=== PATIENT | female | born 1935 | race Caucasian/White ===

== ENCOUNTER → 2016-08-26 | Outpatient (CLI) | payer MEDICARE ==
[~2016-08-26] MED LIST: ACET-1697 PO; ACET325T38 PO; ACET500T94 PO; ALEN70TA47 PO; ALEN70TA51 PO; AMLO5TAB2; Acetaminophen PO; CLPD75T; CRV25T; DCS100C PO; DOCU-161 PO; FERR256T PO; FOLI1TAB24 PO; FRSM40T; GLIP5TAB26; ITRA100C; LATA2.5D19 OD; METH2.5T PO; METH2.5T21 PO; METO25TA2 PO; MTF500T; MTP50T PO; MULT-974 PO; NF-ALI300T; NF-LEVTH75; NS10S IV; PARO10TA21; PRD10T PO; PRD50T PO; PRED5TAB PO; RIVA10TA PO; RIVA20TA2 PO; SENN1TAB76 PO; TERA5CAP10; TETR15DR82 OP; TETR15DR82 OU; TRAM50TA2 PO
--- NOTE | 2016-08-26 10:36 | Diagnostic Imaging Report ---
INDICATION: Interstitial fibrosis. EXAMINATION: PA and lateral chest. FINDINGS: The heart size and pulmonary vascularity are normal. There are no infiltrates, effusions, or pneumothoraces. There is minimal prominence of the interstitium in the perihilar regions of both lungs but the overall appearance of the chest appears improved compared to 08/08/2014. IMPRESSION: Minimal perihilar interstitial prominence. Dictated by: Dictated on workstation # [id number]
== END ==
LOC: RAD 09:57
PROVIDERS: ATTEND Internal Medicine
DX: J84.10 Pulmonary fibrosis, unspecified (principal); M06.9 Rheumatoid arthritis, unspecified; Z79.899 Other long term (current) drug therapy
CPT/HCPCS: 71020

== ENCOUNTER → 2016-10-14 | Outpatient (CLI) | payer MEDICARE ==
--- OUTSIDE RECORDS SUMMARY | 2016-10-14 16:42 | XMS REPORT | Continuity of Care Document ---
Author Author [facility] Organization [facility] Address Unknown Phone Unavailable Allergies Active Description Code Type Severity Reaction Onset Reported/Identified Relationship to Patient Clinical Status Yes No Known Drug Allergies [id number] Drug Allergy Unknown N/ A 10/29/2008 Medications Problems Date Dx Coded Attending Type Code Diagnosis Diagnosed By 03/19/2014 CY BHAKTA DO Ot 250.00 DIAB DEBRA WO COMPL, TYPE II OR UNSPEC TY 03/19/2014 CY BHAKTA DO Ot 276.8 HYPOPOTASSEMIA 03/19/2014 CY BHAKTA DO Ot 288.60 LEUKOCYTOSIS, UNSPECIFIED 03/19/2014 CY BHAKTA DO Ot 362.50 MACULAR DEGENERATION NOS 03/19/2014 CY BHAKTA DO Ot 401.9 HYPERTENSION NOS 03/19/2014 CY BHAKTA DO Ot 427.31 ATRIAL FIBRILLATION 03/19/2014 CY BHAKTA DO Ot 714.0 RHEUMATOID ARTHRITIS 03/19/2014 CY BHAKTA DO Ot 733.00 OSTEOPOROSIS NOS 03/19/2014 CY BHAKTA DO Ot 820.09 FX FEMUR INTRCAPS NEC-CL 03/19/2014 CY BHAKTA DO Ot E849.0 ACCIDENT IN HOME 03/19/2014 CY BHAKTA DO Ot E885.9 FALL FROM SLIPPING, TRIPPING, OR STUMBLI 03/19/2014 CY BHAKTA DO Ot E932.0 ADV EFF CORTICOSTEROIDS 03/29/2014 LILLY ENGLISH, AQUILES E Ot 285.9 ANEMIA NOS 03/29/2014 LILLY ENGLISH, AQUILES E Ot 362.50 MACULAR DEGENERATION NOS 03/29/2014 LILLY ENGLISH, AQUILES E Ot 401.9 HYPERTENSION NOS 03/29/2014 LILLY ENGLISH, AQUILES E Ot 427.31 ATRIAL FIBRILLATION 03/29/2014 LILLY ENGLISH, AQUILES E Ot 714.0 RHEUMATOID ARTHRITIS 03/29/2014 LILLY ENGLISH, AQUILES E Ot 733.00 OSTEOPOROSIS NOS 03/29/2014 LILLY ENGLISH, AQUILES E Ot V54.13 AFTERCARE HEALING TRAUMATIC FX HIP 03/29/2014 LILLY ENGLISH, AQUILES Le Ot V57.89 REHABILITATION PROC NEC 05/18/2014 LIVIA CY Tammy Ot V54.13 AFTERCARE HEALING TRAUMATIC FX HIP 05/18/2014 LIVIA DO CY Munoz Ot V57.1 PHYSICAL THERAPY NEC 06/15/2014 Ot V76.12 06/15/2014 Ot V76.12 06/15/2014 Ot V76.12 06/15/2014 IAN ENGLISH, DINA Gardner Ot V76.12 06/15/2014 IAN ENGLISH, DINA Gadrner Ot 427.31 06/20/2014 IAN ENGLISH, DINA Gardner Ot 511.9 06/20/2014 IAN ENGLISH, DINA Gardner Ot 780.79 06/20/2014 IAN ENGLISH, DINA Gardner Ot 786.7 07/04/2014 IAN ENGLISH, DINA Gardner Ot 486 07/10/2014 DINA SOSA MD Ot 511.9 07/10/2014 IAN ENGLISH, DINA Gardner Ot 780.79 07/10/2014 DINA SOSA MD Ot 786.7 07/16/2014 Ot V76.12 07/16/2014 Ot V76.12 07/16/2014 Ot V76.12 07/16/2014 IAN ENGLISH, DINA Gardner Ot V76.12 07/16/2014 IAN ENGLISH, DINA Gardner Ot 427.31 07/16/2014 IAN ENGLISH, DINA Gardner Ot 511.9 07/16/2014 IAN ENGLISH, DINA Gardner Ot 780.79 07/16/2014 IAN ENGLISH, DINA Gardner Ot 786.7 07/16/2014 IAN ENGLISH, DINA Gardner Ot 486 07/16/2014 IAN ENGLISH, DINA Gardner Ot 486 07/16/2014 LIDYA BACH DO Ot 429.3 07/16/2014 LIDYA BACH DO Ot 514 07/16/2014 IAN ENGLISH, DINA Gardner Ot 486 07/16/2014 LEANDER ENGLISH, PAYAM T Ot 115.90 HISTOPLASMOSIS NOS 07/16/2014 LEANDER ENGLISH, PAYAM Funk Ot 714.0 RHEUMATOID ARTHRITIS 07/16/2014 LEANDER ENGLISH, PAYAM T Ot 719.45 JOINT PAIN-PELVIS 07/16/2014 LEANDER ENGLISH, PAYAM Funk Ot 790.92 COAGULATION PROFILE, ABNORMAL 07/16/2014 BRUEGGEMANN MD, PAYAM T Ot 820.21 INTERTROCHANTERIC FX-CL 07/16/2014 PAYAM TABOR MD Ot E000.8 OTHER EXTERNAL CAUSE STATUS 07/16/2014 PAYAM TABOR MD Ot E888.9 FALL NOS 07/16/2014 PAYAM TABOR MD Ot V58.65 LONG-TERM(CURRENT)USE OF STEROIDS 07/17/2014 DINA SOSA MD Ot 511.9 07/17/2014 DINA SOSA MD Ot 780.79 07/17/2014 DINA SOSA MD Ot 786.7 07/23/2014 DINA SOSA MD Ot 486 08/06/2014 LIDYA BACH DO Ot 429.3 08/06/2014 LIDYA BACH DO Ot 514 08/08/2014 LIDYA BACH DO Ot 401.9 HYPERTENSION NOS 08/08/2014 LIDYA BACH DO Ot 514 PULM CONGEST/HYPOSTASIS 08/08/2014 LIDYA BACH DO Ot 714.0 RHEUMATOID ARTHRITIS 08/08/2014 LIDYA BACH DO Ot 782.3 EDEMA 02/21/2015 TAHIRA JAIN MD Ot 733.00 04/10/2015 DINA SOSA MD Ot V76.12 04/27/2016 Ot V76.12 OTH SCREEN MAMMO-MALIGN NEOPLASM OF SHIVANI 04/27/2016 DINA SOSA MD Ot V76.12 OTH SCREEN MAMMO-MALIGN NEOPLASM OF SHIVANI 04/27/2016 DINA SOSA MD Ot 427.31 ATRIAL FIBRILLATION 04/27/2016 DINA SOSA MD Ot 511.9 PLEURAL EFFUSION NOS 04/27/2016 DINA SOSA MD Ot 780.79 OTH MALAISE FATIGUE 04/27/2016 DINA SOSA MD Ot 786.7 ABNORMAL CHEST SOUNDS 04/27/2016 DINA SOSA MD Ot 486 PNEUMONIA, ORGANISM NOS 04/27/2016 DINA SOSA MD Ot 486 PNEUMONIA, ORGANISM NOS 04/27/2016 LIDYA BACH DO Ot 429.3 CARDIOMEGALY 04/27/2016 LIDYA BACH DO Ot 514 PULM CONGEST/HYPOSTASIS 04/27/2016 DINA SOSA MD Ot V76.12 OTH SCREEN MAMMO-MALIGN NEOPLASM OF SHIVANI 04/27/2016 TAHIRA JAIN MD Ot 733.00 OSTEOPOROSIS NOS 04/28/2016 BLAYNE CHRISSNIRAJ Ot I10 ESSENTIAL (PRIMARY) HYPERTENSION 04/28/2016 BLAYNE CHRISSNIRAJ Ot I34.0 NONRHEUMATIC MITRAL (VALVE) INSUFFICIENC 04/28/2016 BLAYNE CHRISSNIRAJ Ot I48.0 PAROXYSMAL ATRIAL FIBRILLATION 04/28/2016 BLAYNE CHRISS NIRAJ Brown Ot R07.9 CHEST PAIN, UNSPECIFIED 04/28/2016 BLAYNE CHRISSNIRAJ Ot I10 ESSENTIAL (PRIMARY) HYPERTENSION 04/28/2016 BLAYNE CHRISSJHONNYTH K Ot I34.0 NONRHEUMATIC MITRAL (VALVE) INSUFFICIENC 04/28/2016 BLAYNE CHRISS NIRAJ Brown Ot I48.0 PAROXYSMAL ATRIAL FIBRILLATION 04/28/2016 FIGUEROATHAO CHRISS NIRAJ Brown Ot R07.9 CHEST PAIN, UNSPECIFIED 05/19/2016 FIGUEROA-ROB BANERJEE NIRAJ K Ot I10 ESSENTIAL (PRIMARY) HYPERTENSION 05/19/2016 BLAYNE CHRISS NIRAJ Stephanie Ot I34.0 NONRHEUMATIC MITRAL (VALVE) INSUFFICIENC 05/19/2016 FGIUEROATHAO CHRISS NIRAJ Brown Ot I48.0 PAROXYSMAL ATRIAL FIBRILLATION 05/19/2016 FIGUEROA-ROB BANERJEE NIRAJ K Ot R07.9 CHEST PAIN, UNSPECIFIED 05/28/2016 FIGUEROATHAO CHRISSJHONNYTH K Ot I10 ESSENTIAL (PRIMARY) HYPERTENSION 05/28/2016 FIGUEROA-ROB BANERJEE NIRAJ K Ot I34.0 NONRHEUMATIC MITRAL (VALVE) INSUFFICIENC 05/28/2016 FIGUEROATHAO CHRISS NIRAJ Stephanie Ot I48.0 PAROXYSMAL ATRIAL FIBRILLATION 05/28/2016 FIGUEROA-ROB BANERJEE NIRAJ K Ot R07.9 CHEST PAIN, UNSPECIFIED 08/26/2016 DINA SOSA MD Ot J84.10 PULMONARY FIBROSIS, UNSPECIFIED 08/26/2016 DINA SOSA MD Ot M06.9 RHEUMATOID ARTHRITIS, UNSPECIFIED 08/26/2016 DINA SOSA MD Ot Z79.899 OTHER NURSING HOME (CURRENT) DRUG THERAPY 09/16/2016 DINA SOSA MD Ot J84.10 PULMONARY FIBROSIS, UNSPECIFIED 09/16/2016 DINA SOSA MD Ot M06.9 RHEUMATOID ARTHRITIS, UNSPECIFIED 09/16/2016 DINA SOSA MD Ot Z79.899 OTHER NURSING HOME (CURRENT) DRUG THERAPY 09/24/2016 DINA SOSA MD Ot J84.10 PULMONARY FIBROSIS, UNSPECIFIED 09/24/2016 DINA SOSA MD Ot M06.9 RHEUMATOID ARTHRITIS, UNSPECIFIED 09/24/2016 DINA SOSA MD Ot Z79.899 OTHER NEPHROLOGY NURSE (CURRENT) DRUG THERAPY Procedures Code Description Performed By Performed On 81.52 03/14/2014 Results Encounters ACCT No. Visit Date/Time Discharge Status Pt. Type Provider Facility Loc./Unit Complaint [id number] 03/18/2015 10:06:00 2014 23:59:59 CLS Outpatient DINA SOSA MD [facility] RAD SCREENING [id number] 01/31/2015 09:59:00 2014 23:59:59 CLS Outpatient TAHIRA JAIN MD [facility] RAD OSTEOPOROSIS [id number] 08/08/2014 06:56:00 2014 11:00:00 DIS Outpatient LIDYA BACH DO [facility] SDC HISTOPLASMA CAPSULATUM PNEUMONIA [id number] 07/16/2014 13:06:00 2013 16:34:00 DIS Emergency LEANDER ENGLISH, PAYAM Funk [facility] ER FALL/LEFT HIP PAIN [id number] 07/05/2014 09:55:00 2013 23:59:59 CLS Outpatient LIDYA BACH DO [facility] RAD PULMONARY EDEMA [id number] 06/20/2014 14:07:00 2013 23:59:59 CLS Outpatient DINA SOSA MD [facility] RAD PNEUMONIA [id number] 06/20/2014 09:54:00 2013 23:59:59 CLS Outpatient DINA SOSA MD [facility] RAD F/U PNEUMONIA [id number] 06/15/2014 11:38:00 2013 23:59:59 CLS Outpatient DINA SOSA MD [facility] RAD FATIGUE,RAILS RT LUNG [id number] 05/11/2014 11:00:00 2013 12:16:00 DIS Outpatient CY BHAKTA DO [facility] REHAB R HIP FX S/P R PARTIAL HIP REPLACEMENT [id number] 04/06/2014 07:57:00 2013 23:59:59 CLS Outpatient DINA SOSA MD [facility] CARD AFIB POST OP [id number] 03/19/2014 09:51:00 2013 14:30:00 DIS Inpatient AQUILES CARR MD [facility] IRF RIGHT HIP FX [id number] 03/14/2014 09:00:00 2013 09:51:00 DIS Inpatient CY BHAKTA DO [facility] SURGICAL R HIP FRACTURE [id number] 03/27/2013 08:30:00 2012 23:59:59 CLS Outpatient DINA SOSA MD [facility] RAD SCREENING [id number] 10/14/2016 16:38:00 ACT Outpatient DINA SOSA MD [facility] RAD COUGH [id number] 08/26/2016 09:57:00 ACT Outpatient DINA SOSA MD [facility] RAD INTERSTITIAL FIBROSIS [id number] 04/27/2016 12:51:00 ACT Outpatient NIRAJ LOWE [facility] CARD AF,CHEST PAIN SYNDROME,HTN, MR [id number] 11/06/2011 13:41:00 Document Registration [id number] 10/23/2010 09:42:00 Document Registration [id number] 05/30/2009 08:43:00 Document Registration
--- NOTE | 2016-10-14 17:14 | Diagnostic Imaging Report ---
INDICATION: Cough. COMPARISON STUDY: Chest from August 26. FINDINGS: Frontal view of the chest demonstrates stable mild interstitial disease. The heart size and vascularity are normal. There are no pleural effusions. IMPRESSION: Stable mild interstitial lung disease. Dictated by: Dictated on workstation # [id number]
== END ==
LOC: RAD 16:38
PROVIDERS: ATTEND Internal Medicine
DX: R05 Cough (principal)
CPT/HCPCS: 71020

== ENCOUNTER → 2017-01-01 | Outpatient (CLI) | payer MEDICARE | LOC: RAD 10:23 | PROVIDERS: ATTEND Internal Medicine | DX: Z12.31 Encounter for screening mammogram for malignant neoplasm of breast (principal) | CPT/HCPCS: 77067 ==

== ENCOUNTER 2017-08-28 21:44 | Emergency (ER) | payer MEDICARE ==
[~2017-08-28] VITALS: Ht 157.5 cm; Wt 59.0 kg
--- NOTE | 2017-08-28 22:30 | ED Fall/Injury ---
General Chief Complaint: Respiratory Problems Stated Complaint: SOB Nursing Triage Note: PT TO ED 7 W/ DAUGHTER FOR C/O SOB, LT RIB PAIN AFTER "SLIPPING" EARLIER TODAY. PT DENIES FALLING BUT BRUISING IS NOTED TO LT RIBS. STATES "IT'S PLEURISY" TO HER DAUGHTER. Source: patient, family (daughter) Exam Limitations: no limitations History of Present Illness Date Seen by Provider: Aug 28, 2017 Time Seen by Provider: 22:22 Initial Comments Patient presents to ER by private conveyance with chief complaint that she is having a little shortness of breath because she was getting up to move around a chair at [place] [facility] where she was visiting someone and her rheumatoid arthritis has been acting up worse lately than normal and she says she fell to her knees. She did not strike her head or lose consciousness. She is not having any pain anywhere except under her left ribs a little bit of pain on deep inspiration. She is also noted to have some bruising there. She is on Xarelto. She denies cough, fever, chills or dysuria. She is not had a fall in 3 years. 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 One of the aides at [place] did help her get back up because she didn't think she get her knees bent enough to get underneath her. Allergies and Home Medications Allergies Coded Allergies: No Known Drug Allergies (Verified , 10/29/08) Home Medications Acetaminophen 500 Mg Tablet, 1,000 MG PO Q6H, (Reported) Alendronate Sodium 70 Mg Tablet.eff, 70 MG PO DAILY, (Reported) Docusate Sodium 100 Mg Capsule, 100 MG PO BID, (Reported) Ferrous Gluconate 256 Mg Tablet, 150 MG PO DAILY, (Reported) Folic Acid 1 Mg Tablet, 1 MG PO DAILY, (Reported) Latanoprost 2.5 Ml Soln, 2.5 ML OD HS, (Reported) Methotrexate Sodium 2.5 Mg/Dose-Pack Tab.ds.pk, 2.5 MG PO NEEDED, (Reported) Metoprolol Tartrate 50 Mg Tablet, 50 MG PO DAILY, (Reported) Multivitamin 1 Each Tablet, 1 EACH PO DAILY, (Reported) Prednisone 5 Mg Tablet, 10 MG PO DAILY, (Reported) TAKES 2 (5MG) TABLETS Rivaroxaban 20 Mg Tablet, 20 MG PO DAILY, (Reported) Tetrahydrozoline Hcl 15 Ml Drops, 15 ML OP NEEDED, (Reported) Tramadol Hcl 50 Mg Tablet, 50 MG PO NEEDED, (Reported) Constitutional: No chills, No diaphoresis Eyes: Denies Blurred Vision, Denies Drainage Respiratory: No cough, short of breath (pleuritic chest pain per patient and daughter's description) Cardiovascular: chest pain (on deep inspiration), No palpitations Gastrointestinal: No abdominal pain, No constipation, No diarrhea, No dysphagia Genitourinary: No discharge, No dysuria, No frequency, incontinence ( physiologic) Past Acvvcjo-Uviogb-Oeyfao Hx Patient Social History Alcohol Use: Denies Use Recreational Drug Use: No Smoking Status: Never a Smoker Recent Foreign Travel: No Contact w/Someone Who Travel: No Recent Infectious Disease Expo: No Recent Hopitalizations: Yes (reaction to b/p medication and had three children. ) Physical Abuse: No Sexual Abuse: No Mistreated: No Fear: No Immunizations Up To Date Date of Pneumonia Vaccine: May 02, 2010 Date of Influenza Vaccine: Apr 30, 2014 Surgeries History of Surgeries: Yes (toe surgery and ear surgery,joint removed from toes) Respiratory History of Respiratory Disorde: Yes (HISTOPLASMOSIS) Respiratory Disorders: Pneumonia Cardiovascular History of Cardiac Disorders: Yes Cardiac Disorders: Hypertension Neurological History of Neurological Disord: No Reproductive System Hx Reproductive Disorders: No Gastrointestinal History of Gastrointestinal Di: Yes Gastrointestinal Disorders: Ulcer Musculoskeletal History of Musculoskeletal Dis: Yes (left and right broken hips in 2013) Musculoskeletal Disorders: Arthritis Endocrine History of Endocrine Disorders: No HEENT HEENT Disorders: Cataract Cancer History of Cancer: No Psychosocial History of Psychiatric Problem: No Suicide Risk Score: 0 Blood Transfusions History of Blood Disorders: No Adverse Reaction to a Blood Tr: No Family Medical History Family Medial History: Alzheimer's disease 19 MOTHER FH: Hodgkins disease 19 FATHER Physical Exam Vital Signs Vital Sign - Last 12Hours 08/28/17 21:48 Temp 96.7 Pulse 66 Resp 20 B/P (MAP) 196/96 (129) Pulse Ox 100 O2 Delivery Room Air Capillary Refill : Less Than 3 Seconds General Appearance: WD/WN, no apparent distress HEENT: PERRL/EOMI, pharynx normal Neck: non-tender, normal inspection Cardiovascular: normal peripheral pulses, regular rate, rhythm Respiratory: lungs clear, normal breath sounds, no respiratory distress, no accessory muscle use, other (left midaxillary line ribs 11 and 12 mild tender to palpation with some oozing over them.) Gastrointestinal: normal bowel sounds, non tender 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, no motor/sensory deficits, alert, normal mood/affect, oriented x 3 Skin: ecchymosis (over the left ribs midaxillary line) Progress/Results/Core Measures Results/Orders Lab Results Laboratory Tests Test 08/28/17 23:10 Range/Units Urine Color YELLOW Urine Clarity CLEAR Urine pH 6 5-9 Urine Specific [place] 1.020 1.016-1.022 Urine Protein NEGATIVE NEGATIVE Urine Glucose (UA) NEGATIVE NEGATIVE Urine Ketones NEGATIVE NEGATIVE Urine Nitrite POSITIVE H NEGATIVE Urine Bilirubin NEGATIVE NEGATIVE Urine Urobilinogen NORMAL NORMAL MG/DL Urine Leukocyte Esterase 3+ H NEGATIVE Urine RBC (Auto) 5+ H NEGATIVE Urine RBC 10-25 H /HPF Urine WBC 25-50 H /HPF Urine Crystals NONE /LPF Urine Bacteria LARGE H /HPF Urine Casts NONE /LPF Urine Mucus NEGATIVE /LPF Urine Culture Indicated YES My Orders Orders - ZORAIDA SWANSON Chest Pa/Lat (2 View) (08/28/17 22:22) Ribs, Left 2-3 Views (08/28/17 22:25) Ua Culture If Indicated (08/28/17 22:25) Urine Culture (08/28/17 23:10) Vital Signs/I&O Vital Sign - Last 12Hours 08/28/17 21:48 Temp 96.7 Pulse 66 Resp 20 B/P (MAP) 196/96 (129) Pulse Ox 100 O2 Delivery Room Air Blood Pressure Mean: 129 Progress Note : Time: 22:29 Progress Note She has good air movement and her shortness of air is actually just. Chest pain by her description. She wants us to shoot some x-rays to make sure that are not fractured. This is above the diaphragm and probably does not relate to a intra- abdominal bleed based on where the ecchymosis is however we will give her good return precautions if we decided to let her go today. Otherwise she says she feels fine. Plan is to also check a urine given her fall. She says her rheumatoid arthritis is been acting up lately possible this is related to her fall but she has not had a fall 3 years. ECG Initial ECG Impression Date: Aug 28, 2017 Initial ECG Impression Time: 21:53 Initial ECG Rhythm: Normal Sinus Initial ECG Intervals: VA (228) Initial ECG Impression: 1st Degree AV Block Initial ECG Comparisson: Changed Comment New first-degree AV block since 2013 EKG. No T-wave elevation or depression. Diagnostic Imaging Diagonstic Imaging: Xray Plain Films/CT/US/NM/MRI: other (left ribs) Reviewed: Reviewed by Me Departure Impression Impression: Primary Impression: UTI (urinary tract infection) Qualified Codes: N30.01 - Acute cystitis with hematuria Additional Impressions: Fall Qualified Codes: W19.XXXA - Unspecified fall, initial encounter Contusion of rib on left side Qualified Codes: S20.212A - Contusion of left front wall of thorax, initial encounter Disposition: HOME, SELF-CARE Condition: Stable Departure-Patient Inst. Decision time for Depature: 23:45 Referrals: DINA SOSA MD (PCP/Family) Primary Care Physician Patient Instructions: Acute Cystitis (DC) Add. Discharge Instructions: Drink copious amounts of fluids. Take your antibiotics twice a day by mouth with food and you may also use twice daily probiotics if you prefer to try and reduce the side effects such as diarrhea caused by antibiotic use. Return to care if you begin to have fevers after starting the antibiotics or other worrisome symptoms such as nausea vomiting or increased pain, chest pain or shortness of breath. You may use 1000 g Tylenol every 8 hours as needed for your chest pain as well as ice packs for the first couple of days and heating pads. All discharge instructions reviewed with patient and/or family. Voiced understanding. Scripts Nitrofurantoin Monohyd/M-Cryst (Macrobid 100 mg Capsule) 100 Mg Capsule 1 TAB PO BID for 7 Days, #14 CAP 0 Refills Prov: ZORAIDA SWANSON 08/28/17 Copy Copies To 1: DINA SOSA MD, TITUS J Aug 28, 2017 22:30
[2017-08-28 23:24] LABS: BILIRUBIN,URINE NEGATIVE (NEGATIVE); CLARITY,URINE CLEAR; COLOR,URINE YELLOW; GLUCOSE, URINE (UA) NEGATIVE (NEGATIVE); KETONES,URINE NEGATIVE (NEGATIVE); LEUKOCYTE ESTERASE ,URINE 3+ (NEGATIVE); NITRITE,URINE POSITIVE (NEGATIVE); PH,URINE 6 (5-9); PROTEIN,URINE NEGATIVE (NEGATIVE); UROBILINOGEN,URINE NORMAL (NORMAL)
[2017-08-28 23:42] LABS: BACTERIA,URINE LARGE /HPF; WBC,URINE 25-50 /HPF
[2017-08-28] MEDS ORDERED: NITR-65 PO (23:47)
[2017-08-28] MEDS ORDERED: RX-NITROFURANTOIN 100 MG (MACROBID) CAP PPK#2 PO STA (23:54)
[2017-08-29 00:10] VITALS: BP 147/79
--- NOTE | 2017-08-29 07:12 | Diagnostic Imaging Report ---
Clinical indication: Patient with left rib pain after slipping earlier today. Patient had shortness of breath. Exam: Chest x-ray PA and lateral views. Comparison: Chest x-ray dated 10/14/2016. Findings: Again seen chronic compression deformity of a lower thoracic vertebra. There is degenerative spurs involving the thoracic spine. Lungs are clear. There is no pleural effusion or pneumothorax. Pulmonary vasculature and cardiac silhouettes within normal limits. There is mild left curvature of the lumbar spine again noted. There is degenerative changes of the left shoulder again seen. Impression: 1.: There is no interval radiographic evidence of acute cardiopulmonary process. 2: Stable chronic compression deformity of a lower thoracic vertebra. 3: There is no other concern for acute bony process on this exam. Dictated by: Dictated on workstation # [id number]
--- NOTE | 2017-08-29 07:31 | Diagnostic Imaging Report ---
Clinical indication: Patient with shortness of breath and left rib pain after slipping earlier today. Exam: X-ray of the left ribs, 3 views. Comparison: Chest x-ray dated 08/28/2009. Findings: There is diffuse osteopenia seen which limits evaluation for fine bony detail. The posterior mid and lower ribs are obscured by cardiac shadow. There is no definite acute rib fracture seen. There is multilevel thoracic spine degenerative spurs seen throughout the thoracic spine. Again seen chronic compression deformity of a lower thoracic vertebra. There is degenerative changes of the left shoulder. Impression: 1.: There is no evidence of acute rib fracture. 2: Multilevel thoracic spine degenerative disease. 3: Chronic compression deformity of a lower thoracic vertebra. Dictated by: Dictated on workstation # [id number]
== END 2017-08-29 00:10 | disposition home or self-care (01) ==
LOC: EDUNIT# 21:44 → ER 21:46
DX: S20.212A Contusion of left front wall of thorax, initial encounter (principal); N39.0 Urinary tract infection, site not specified; M06.9 Rheumatoid arthritis, unspecified; I10 Essential (primary) hypertension; Z87.19 Personal history of other diseases of the digestive system; Z79.01 Long term (current) use of anticoagulants; Z87.01 Personal history of pneumonia (recurrent); W01.0XXA Fall on same level from slipping, tripping and stumbling without subsequent striking against object, initial encounter
CPT/HCPCS: 71046; 71100; 81000; 87077; 87088; 87186; 93005; 99283

== ENCOUNTER → 2017-09-30 | Outpatient (CLI) | payer MEDICARE ==
[~2017-09-30] MED LIST changes: +NITR-65 PO
--- NOTE | 2017-09-30 17:39 | Diagnostic Imaging Report ---
INDICATION: Preop chest evaluation. EXAMINATION: PA and lateral chest. FINDINGS: Heart size and pulmonary vascularity are normal. Lungs are clear. There are no effusions or pneumothoraces. IMPRESSION: No acute abnormalities in the chest. Dictated by: Dictated on workstation # [id number]
== END ==
LOC: RAD 11:09
PROVIDERS: ATTEND Internal Medicine Rheumatology
DX: Z01.818 Encounter for other preprocedural examination (principal); M81.0 Age-related osteoporosis without current pathological fracture
CPT/HCPCS: 77080

== ENCOUNTER 2017-11-20 08:16 | Inpatient (IN) | payer MEDICARE ==
[2017-11-20] VITALS (12 sets, daily range): BP systolic 85–167; BP diastolic 55–88
[~2017-11-20] VITALS: Ht 154.9 cm; Wt 71.4 kg
[2017-11-20] MEDS ORDERED: NS IV 1000 ML 1,000 ML ONE (08:25)
[2017-11-20] MEDS: NS IV 1000 ML 1,000 ML IV SCH ×5 (08:35→22:43)
[2017-11-20 08:44] LABS: BASOPHILS % (AUTO) 1 % (0-10); EOSINOPHILS # (AUTO) 0.1 10^3/uL (0.0-0.3); EOSINOPHILS % (AUTO) 3 % (0-10); HEMATOCRIT 46 % (35-52); HEMOGLOBIN 15.8 G/DL (11.5-16.0); LYMPHOCYTES # (AUTO) 0.7 X 10^3 (1.0-4.0); LYMPHOCYTES % (AUTO) 14 % (12-44); MEAN CORPUSCULAR HEMOGLOBIN 32 PG (25-34); MEAN CORPUSCULAR HGB CONC 34 G/DL (32-36); MEAN CORPUSCULAR VOLUME 92 FL (80-99); MEAN PLATELET VOLUME 9.7 FL (7.4-10.4); MONOCYTES # (AUTO) 0.1 X 10^3 (0.0-1.0); MONOCYTES % (AUTO) 2 % (0-12); NEUTROPHILS # (AUTO) 4.3 X 10^3 (1.8-7.8); NEUTROPHILS % (AUTO) 81 % (42-75); PLATELET COUNT 137 10^3/uL (130-400); RED BLOOD COUNT 4.99 10^6/uL (4.35-5.85); RED CELL DISTRIBUTION WIDTH 15.2 % (10.0-14.5); WHITE BLOOD COUNT 5.3 10^3/uL (4.3-11.0)
[2017-11-20] MEDS ORDERED: HYDROCORTISONE 100 MG/2 ML (Solu-CORTEF) VIAL IV ONE (08:45)
[2017-11-20 08:56] LABS: INR 2.6 (0.8-1.4); PROTHROMBIN TIME PATIENT 27.7 SEC (12.2-14.7)
--- NOTE | 2017-11-20 09:02 | Diagnostic Imaging Report ---
Indication: Lower respiratory infection Portable chest 8:40 AM Heart size and pulmonary vascular normal. Lungs are clear. There are no effusions or pneumothoraces. Impression: Negative chest Dictated by: Dictated on workstation # [id number]
[2017-11-20 09:06] LABS: ALANINE AMINOTRANSFERASE 108 U/L (0-55); ALBUMIN 3.2 GM/DL (3.2-4.5); ALKALINE PHOSPHATASE 137 U/L (40-136); BILIRUBIN,TOTAL 1.4 MG/DL (0.1-1.0); BUN/CREATININE RATIO 27; CALCIUM 9.2 MG/DL (8.5-10.1); CARBON DIOXIDE 22 MMOL/L (21-32); CHLORIDE 102 MMOL/L (98-107); CREATININE SERUM 0.79 MG/DL (0.60-1.30); GFR ESTIMATED > 60; GLUCOSE 117 MG/DL (70-105); POTASSIUM 3.9 MMOL/L (3.6-5.0); SODIUM 136 MMOL/L (135-145); TOTAL PROTEIN 5.9 GM/DL (6.4-8.2)
--- NOTE | 2017-11-20 09:08 | ED General ---
General Chief Complaint: Fever-Adult/Adol Stated Complaint: CHILLS,FEVER,BODY ACHES Nursing Triage Note: PT TO ROOM 6 PT STATES HAS FEVER FOR A FEW DAYS. WAS SEEN BY DR SOSA .FEVER 101-102 LAST PM Nursing Sepsis Screen: No Definite Risk Source of Information: Patient, Family Exam Limitations: No Limitations History of Present Illness Date Seen by Provider: Nov 20, 2017 Time Seen by Provider: 08:22 Initial Comments Here with report of being sick with fever and mild cough over the last several days. She's had a urine sample and blood cultures drawn and labs as well. To this point there has been no significant findings. Daughter states that she's had fevers that are worse at night and was noted to have a fever of 101to 102F last night. Denies dysuria or vomiting. Eating and drinking okay. Not steadily short of breath. Patient is chronically on steroids due to rheumatoid arthritis and has had her dose increased from 5 mg daily to 15 mg daily and then recently decreased to 10 mg daily. Timing/Duration: 4-5 Days Severity: Moderate Associated Systoms: Cough, Fever/Chills; No Nausea/Vomiting; Weakness Allergies and Home Medications Allergies Coded Allergies: No Known Drug Allergies (Verified , 10/29/08) Home Medications Acetaminophen 500 Mg Tablet, 1,000 MG PO Q6H, (Reported) Alendronate Sodium 70 Mg Tablet.eff, 70 MG PO DAILY, (Reported) Docusate Sodium 100 Mg Capsule, 100 MG PO BID, (Reported) Ferrous Gluconate 256 Mg Tablet, 150 MG PO DAILY, (Reported) Folic Acid 1 Mg Tablet, 1 MG PO DAILY, (Reported) Latanoprost 2.5 Ml Soln, 2.5 ML OD HS, (Reported) Methotrexate Sodium 2.5 Mg/Dose-Pack Tab.ds.pk, 2.5 MG PO NEEDED, (Reported) Metoprolol Tartrate 50 Mg Tablet, 50 MG PO DAILY, (Reported) Multivitamin 1 Each Tablet, 1 EACH PO DAILY, (Reported) Nitrofurantoin Monohyd/M-Cryst 100 Mg Capsule, 1 TAB PO BID Prescribed by: ZORAIDA SWANSON on 08/28/17 4467 Prednisone 5 Mg Tablet, 10 MG PO DAILY, (Reported) TAKES 2 (5MG) TABLETS Rivaroxaban 20 Mg Tablet, 20 MG PO DAILY, (Reported) Tetrahydrozoline Hcl 15 Ml Drops, 15 ML OP NEEDED, (Reported) Tramadol Hcl 50 Mg Tablet, 50 MG PO NEEDED, (Reported) Patient Home Medication List Home Medication List Reviewed: Yes Review of Systems Constitutional: see HPI, chills, fever, weakness EENTM: no symptoms reported Respiratory: see HPI, cough; No short of breath Cardiovascular: No chest pain, No edema Gastrointestinal: No abdominal pain, No nausea, No vomiting Genitourinary: incontinence (at night) : No Musculoskeletal: joint pain Skin: no symptoms reported Psychiatric/Neurological: No Symptoms Reported All Other Systems Reviewed Negative Unless Noted: Yes Past Uprsekr-Dlrzob-Jfkglf Hx Past Med/Social Hx: Reviewed Nursing Past Med/Soc Hx Patient Social History Alcohol Use: Denies Use Recreational Drug Use: No Smoking Status: Never a Smoker Recent Foreign Travel: No Contact w/Someone Who Travel: No Recent Infectious Disease Expo: No Recent Hopitalizations: No (reaction to b/p medication and had three children.) Physical Abuse: No Sexual Abuse: No Immunizations Up To Date Date of Pneumonia Vaccine: May 02, 2010 Date of Influenza Vaccine: Apr 30, 2014 Past Medical History Surgeries: Yes (toe surgery and ear surgery,joint removed from toes) Respiratory: Yes (HISTOPLASMOSIS) Pneumonia Cardiac: Yes Hypertension Neurological: No Reproductive Disorders: No Gastrointestinal: Yes Ulcer Musculoskeletal: Yes (left and right broken hips in 2013) Arthritis Endocrine: No Cataract Cancer: No Psychosocial: No Nursing Suicide Risk Score: 0 Blood Disorders: No Adverse Reaction/Blood Tranf: No Family Medical History Reviewed Nursing Family Hx Alzheimer's disease 19 MOTHER FH: Hodgkins disease 19 FATHER Physical Exam-Suspected Sepsis Physical Exam Vital Signs Vital Signs - First Documented 11/20/17 08:54 Temp 98.9 Pulse 65 Resp 18 B/P (MAP) 94/48 (63) Pulse Ox 93 Capillary Refill : Less Than 3 Seconds Blood Pressure Mean: 63 General Appearance: No Apparent Distress, WD/WN HEENT: PERRL/EOMI, Normal ENT Inspection, Pharynx Normal Neck: Non Tender, Supple Respiratory: Crackles (bilateral bases) Cardiovascular: Regular Rate, Rhythm, No Murmur Gastrointestinal: Non Tender, Soft Back: Normal Inspection, No CVA Tenderness, No Vertebral Tenderness Extremity: Normal Capillary Refill, Normal Range of Motion, Non Tender, Other ( rheumatoid changes in hands and feet as well as elbows.) Neurologic/Psychiatric: Alert, Oriented x3, No Motor/Sensory Deficits Skin: normal color, warm/dry Lymphatic: No Adenopathy Focused Exam Lactate Level 11/20/17 08:30: Lactic Acid Level 2.95*H 11/20/17 10:49: Lactic Acid Level Laboratory Tests Test 11/20/17 08:30 11/20/17 10:49 Lactic Acid Level 2.95 MMOL/L (0.50-2.00) *H Progress/Results/Core Measures Suspected Sepsis Recent Fever Within 48 Hours: No Infection Criteria Present: None New/Unexplained Altered Menta: No Sepsis Screen: No Definite Risk SIRS Temperature:98.9 Pulse: 65 Respiratory Rate: 18 Laboratory Tests 11/20/17 08:30: White Blood Count 5.3 Blood Pressure 94 /48 Mean: 63 11/20/17 08:30: Lactic Acid Level 2.95*H 11/20/17 10:49: Laboratory Tests 11/20/17 08:30: Creatinine 0.79, INR Comment 2.6H, Platelet Count 137, Total Bilirubin 1.4H Results/Orders Lab Results Laboratory Tests Test 11/20/17 08:30 11/20/17 09:02 11/20/17 10:49 Range/Units White Blood Count 5.3 4.3-11.0 10^3/uL Red Blood Count 4.99 4.35-5.85 10^6/uL Hemoglobin 15.8 11.5-16.0 G/DL Hematocrit 46 35-52 % Mean Corpuscular Volume 92 80-99 FL Mean Corpuscular Hemoglobin 32 25-34 PG Mean Corpuscular Hemoglobin Concent 34 32-36 G/DL Red Cell Distribution Width 15.2 H 10.0-14.5 % Platelet Count 137 130-400 10^3/uL Mean Platelet Volume 9.7 7.4-10.4 FL Neutrophils (%) (Auto) 81 H 42-75 % Lymphocytes (%) (Auto) 14 12-44 % Monocytes (%) (Auto) 2 0-12 % Eosinophils (%) (Auto) 3 0-10 % Basophils (%) (Auto) 1 0-10 % Neutrophils # (Auto) 4.3 1.8-7.8 X 10^3 Lymphocytes # (Auto) 0.7 L 1.0-4.0 X 10^3 Monocytes # (Auto) 0.1 0.0-1.0 X 10^3 Eosinophils # (Auto) 0.1 0.0-0.3 10^3/uL Basophils # (Auto) 0.0 0.0-0.1 10^3/uL Prothrombin Time 27.7 H 12.2-14.7 SEC INR Comment 2.6 H 0.8-1.4 Activated Partial Thromboplast Time 37 H 24-35 SEC Sodium Level 136 135-145 MMOL/L Potassium Level 3.9 3.6-5.0 MMOL/L Chloride Level 102 98-107 MMOL/L Carbon Dioxide Level 22 21-32 MMOL/L Anion Gap 12 5-14 MMOL/L Blood Urea Nitrogen 21 H 7-18 MG/DL Creatinine 0.79 0.60-1.30 MG/DL Estimat Glomerular Filtration Rate > 60 BUN/Creatinine Ratio 27 Glucose Level 117 H 70-105 MG/DL Lactic Acid Level 2.95 *H 0.50-2.00 MMOL/L Calcium Level 9.2 8.5-10.1 MG/DL Total Bilirubin 1.4 H 0.1-1.0 MG/DL Aspartate Amino Transf (AST/SGOT) 124 H 5-34 U/L Alanine Aminotransferase (ALT/SGPT) 108 H 0-55 U/L Alkaline Phosphatase 137 H 40-136 U/L Total Protein 5.9 L 6.4-8.2 GM/DL Albumin 3.2 3.2-4.5 GM/DL TSH [place] Testing 2.01 0.35-4.94 UIU/ML Urine Color YELLOW Urine Clarity CLOUDY H Urine pH 6 5-9 Urine Specific [place] 1.010 L 1.016-1.022 Urine Protein 2+ H NEGATIVE Urine Glucose (UA) NEGATIVE NEGATIVE Urine Ketones NEGATIVE NEGATIVE Urine Nitrite NEGATIVE NEGATIVE Urine Bilirubin 1+ H NEGATIVE Urine Urobilinogen NORMAL NORMAL MG/DL Urine Leukocyte Esterase 1+ H NEGATIVE Urine RBC (Auto) 5+ H NEGATIVE Urine RBC >100 H /HPF Urine WBC 5-10 H /HPF Urine Squamous Epithelial Cells 2-5 /HPF Urine Crystals NONE /LPF Urine Bacteria FEW H /HPF Urine Casts PRESENT /LPF Urine Granular Casts 0-2 H /LPF Urine Mucus NEGATIVE /LPF Urine Culture Indicated YES Micro Results Microbiology 11/20/17 Influenza Types A,B Antigen ([place]) - Final, Complete My Orders Orders - TOBY TRAYLOR MD Ns Iv 1000 Ml (Sodium Chloride 0.9%) (11/20/17 08:25) Cbc With Automated Diff (11/20/17 08:34) Comprehensive Metabolic Panel (11/20/17 08:34) Lactic Acid Analyzer (11/20/17 08:34) Blood Culture (11/20/17 08:34) Sputum Culture (11/20/17 08:34) Ua Culture If Indicated (11/20/17 08:34) Protime With Inr (11/20/17 08:34) Partial Thromboplastin Time (11/20/17 08:34) Chest 1 View, Ap/Pa Only (11/20/17 08:34) O2 (11/20/17 08:34) Saline Lock/Iv-Start (11/20/17 08:34) Saline Lock/Iv-Start (11/20/17 08:34) Vital Signs Adult Sepsis Patie Q1H (11/20/17 08:34) Remove Rings In Anticipation O (11/20/17 08:34) Thyroid Analyzer (11/20/17 08:34) Ns Iv 1000 Ml (Sodium Chloride 0.9%) (11/20/17 08:34) Influenza A And B Antigens (11/20/17 08:34) Hydrocortisone Injection (Solu-Cortef In (11/20/17 08:45) Urine Culture (11/20/17 09:02) Piperacillin Sodium/Tazobactam (Zosyn Vi (11/20/17 10:00) Ns Iv 1000 Ml (Sodium Chloride 0.9%) (11/20/17 11:00) Medications Given in ED Current Medications Medications Dose Ordered Sig/Yaneth Route Start Time Stop Time Status Last Admin Dose Admin Hydrocortisone Sodium Succinate 100 mg ONCE ONCE IV 11/20/17 08:45 11/20/17 08:46 DC 11/20/17 08:49 100 MG Piperacillin Sod/ Tazobactam Sod 4.5 gm/Dextrose 100 ml @ 200 mls/hr ONCE ONCE IV 11/20/17 10:00 11/20/17 10:29 DC 11/20/17 10:10 200 MLS/HR Vital Signs/I&O 11/20/17 08:54 Temp 98.9 Pulse 65 Resp 18 B/P (MAP) 94/48 (63) Pulse Ox 93 Capillary Refill : Less Than 3 Seconds Blood Pressure Mean: 63 Progress Note : Progress Note Seen and evaluated. IV, labs, UA, chest x-ray, blood cultures and lactic acid ordered. Patient noted to be hypotensive with blood pressure less than 90 systolic. Patient's weight is proximal 130 pounds we will base fluid administration on that weight for 30 mL/kg bolus. Due to patient's steroid dependence and current stress state, hydrocortisone 100 mg IV ordered. Patient noted to be on Xarelto which is likely the cause of patient's INR values being elevated. Monitor patient. 0950: Patient's lactic acid is elevated and she has IV fluids continuing. Overall she is doing better after fluids and hydrocortisone. I did discuss the case with Dr. Ramirez. We will initiate Zosyn given her immune status and adjust antibiotics as indicated. Zosyn 4.5 g IV ordered. All findings concerns were discussed with patient and family. We will admit to the ICU, inpatient status. Patient and family agree with plan. 1010: I attest a focused exam at this time. Blood pressure currently 101/51 with heart rate of 69 and O2 sat of 98 percent on room air. Diagnostic Imaging Diagonstic Imaging: Xray Plain Films/CT/US/NM/MRI: chest Comments NAME: SIMEON BUCK [facility] REC#: [id number] PT STATUS: REG ER : 1935 PHYSICIAN: TOBY TRAYLOR MD ADMIT DATE: 11/20/17/ER Signed Date of Exam: 11/20/17 CHEST 1 VIEW, AP/PA ONLY Indication: Lower respiratory infection Portable chest 8:40 AM Heart size and pulmonary vascular normal. Lungs are clear. There are no effusions or pneumothoraces. Impression: Negative chest Dictated by: Dictated on workstation # [id number] Dict: 11/20/17858 Trans: 11/20/17899 Interpreted by: TOBY VALLEJO MD Electronically signed by: TOBY VALLEJO MD 11/20/17899 Departure Communication (Admissions) Time/Spoke to Admitting Phy: 09:50 Impression Primary Impression: Severe sepsis Additional Impressions: Urinary tract infection Qualified Codes: N30.01 - Acute cystitis with hematuria Rheumatoid arthritis Qualified Codes: M06.9 - Rheumatoid arthritis, unspecified Disposition: 09 ADMITTED INPATIENT Condition: Stable Admissions Decision to Admit Reason: Admit from ER (General) Decision to Admit/Date: Nov 20, 2017 Time/Decision to Admit Time: 09:50 Departure-Patient Inst. Referrals: DINA SOSA MD (PCP/Family) Primary Care Physician TOBY TRAYLOR MD Nov 20, 2017 09:07
[2017-11-20 09:09] LABS: COLOR,URINE YELLOW; GLUCOSE, URINE (UA) NEGATIVE (NEGATIVE); KETONES,URINE NEGATIVE (NEGATIVE); LEUKOCYTE ESTERASE ,URINE 1+ (NEGATIVE); NITRITE,URINE NEGATIVE (NEGATIVE); PH,URINE 6 (5-9); PROTEIN,URINE 2+ (NEGATIVE); UROBILINOGEN,URINE NORMAL (NORMAL)
[2017-11-20 09:21] LABS: BACTERIA,URINE FEW /HPF; BILIRUBIN,URINE 1+ (NEGATIVE); CLARITY,URINE CLOUDY; GRANULAR CASTS,URINE 0-2 /LPF; RBC,URINE >100 /HPF
[2017-11-20 09:26] LABS: TSH (THYROID ANALYZER) 2.01 UIU/ML (0.35-4.94)
[2017-11-20] MEDS ORDERED: PIPERACILLIN SODIUM/TAZOBACTAM 4.5 GM in D5W 100 ML IVPB 100 ML IV ONE (10:00)
[2017-11-20] MEDS ORDERED: NS 1000 ML IV BAG IV ONE (11:00)
[2017-11-20] MEDS ORDERED: NS IV 1000 ML 1,000 ML IV SCH (11:45)
[2017-11-20] MEDS ORDERED: NOREPINEPHRINE 4 MG in NS (IVPB) 250 ML IV PRN (12:00)
--- NOTE | 2017-11-20 12:07 | History & Physical-Hospitalist ---
History of Present Illness HPI/Chief Complaint Pt is an 82yoCF with a PMH of RA on multiple immunsuppressants and a-fib who presented to the ER due to fever and confusion. She is unsure of the details of the past few days but her daughter is at bedside to provide history. Daughter states that 4-5 days ago she started to developed fevers in the evenings, new onset incontinence, and night sweats. They called their PCP who ordered labs to be done at [facility] and she had a UA and blood cultures done. They are unaware of the results of the cultures at this time and [facility] is not open to call. This morning she became more confused and had persistent fevers so her daughter brought her to the ER for evaluation. She was found to be very hypotensive on arrival and UA was consistent with a UTI. She was started on severe sepsis protocol and received her 30cc/kg bolus. During my exam with the patient she denied any pain and seemed to be answering questions appropriately though daughter states she was not mentating quite as well as she normally does. Her BP dropped to 70/30s and decision was made for central line placement for potential vasopressor use if needed. Date Seen 11/20/17 Time Seen by Provider: 12:07 Attending Physician Sergio Ramirez MD PCP Desmond Myers MD Referring Physician Date of Admission Nov 20, 2017 at 10:18 am Home Medications & Allergies Home Medications Reviewed patient Home Medication Reconciliation performed by pharmacy medication reconciliations library acquisitions technician and/or nursing. Patients Allergies have been reviewed. Allergies Allergies Coded Allergies No Known Drug Allergies (Verified10/29/08) Past Sqxvelb-Vgondn-Khsnkr Hx Past Med/Social Hx: Reviewed Nursing Past Med/Soc Hx, Reviewed and Corrections made Patient Social History Marrital Status: Employed/Student: retired Alcohol Use: Denies Use Recreational Drug Use: No Smoking Status: Never a Smoker Recent Foreign Travel: No Contact w/other who traveled: No Recent Hopitalizations: No (reaction to b/p medication and had three children.) Recent Infectious Disease Expo: No Immunizations Up To Date Date of Pneumonia Vaccine: May 02, 2010 Date of Influenza Vaccine: Apr 30, 2014 Past Medical History Surgeries: Orthopedic Cardiac: Hypertension Reproductive: No Gastrointestinal: Ulcer Musculoskeletal: Rheumatoid Arthritis HEENT: Cataract History of Blood Disorders: No Adverse Reaction to Blood Esquivel: No Family History Reviewed Nursing Family Hx Alzheimer's disease 19 MOTHER FH: Hodgkins disease 19 FATHER Review of Systems Constitutional: No chills; fever, weakness EENTM: No blurred vision, No double vision, No nose congestion, No throat pain Respiratory: No cough (denied cough but coughing during exam), No dyspnea on exertion, No short of breath Cardiovascular: No chest pain, No edema, No palpitations Gastrointestinal: No abdominal pain, No constipation, No diarrhea, No nausea, No vomiting Genitourinary: No dysuria, No frequency; incontinence Musculoskeletal: No joint pain, No muscle pain Skin: No lesions Psychiatric/Neurological: Denies Headache, Denies Numbness, Denies Tingling; Other (confusion) Physical Exam Physical Exam Vital Signs Vital Signs - First Documented 11/20/17 11/20/17 11/20/17 08:54 12:48 14:04 Temp 98.9 Pulse 65 Resp 18 B/P (MAP) 94/48 (63) Pulse Ox 93 O2 Delivery Room Air FiO2 93 Capillary Refill : Less Than 3 Seconds General Appearance: No Apparent Distress, WD/WN HEENT: PERRL/EOMI, Moist Mucous Membranes; No Scleral Icterus (L), No Scleral Icterus (R) Neck: Non Tender, Supple; No JVD, No Thyromegaly Respiratory: Lungs Clear, No Respiratory Distress Cardiovascular: Regular Rate, Rhythm, No Murmur Gastrointestinal: Normal Bowel Sounds, Non Tender, Soft Extremity: Normal Capillary Refill, No Calf Tenderness, Other (deformities of bilateral feet consistent with severe RA) Neurologic/Psychiatric: Alert, Oriented x3, No Motor/Sensory Deficits, Normal Mood/Affect Skin: Normal Color, Warm/Dry; No Diaphoresis; Ecchymosis (on right prado); No Mottled, No [place]ia Results Results/Procedures Labs Laboratory Tests 11/20/17 08:30 11/21/17 03:25 Patient resulted labs reviewed. Imaging: Reviewed Imaging Films, Reviewed Imaging Report Imaging Date of Exam: 11/20/17 CHEST 1 VIEW, AP/PA ONLY Indication: Lower respiratory infection Portable chest 8:40 AM Heart size and pulmonary vascular normal. Lungs are clear. There are no effusions or pneumothoraces. Impression: Negative chest Assessment/Plan Admission Diagnosis Septic Shock Admission Status: Inpatient Order (span 2 midnights) Reason for Inpatient Admission: ICu level care, may need pressors, critically ill Lactate Level 11/20/17 08:30: Lactic Acid Level 2.95*H 11/20/17 10:49: Lactic Acid Level 1.67 Time of Focused Exam: 12:00 Respiratory: Lungs Clear Cardiovascular: No Murmur, Tachycardia Capillary Refill: Less Than 3 Seconds Peripheral Pulses: 2+ Dorsalis Pedis (R), 2+ Left Dors-Pedis (L) Skin: normal color; No diaphoresis; ecchymosis; No rash Lactic Acid Level Diagnosis/Problems Diagnosis/Problems (1) Septic shock Assessment & Plan: UA consistent with UTI Refractory hypotension following 30cc/kg bolus Lactic acid elevated and now normalized Central Line placed in ER Repeat bolus (3rd) ordered while awaiting central line placement and MAP now > 65 Will avoid vasopressors if able but use if MAP <65 Blood cultures obtained in ER- await results Zosyn in ER, will add Vanc (2) Urinary tract infection Status: Acute Assessment & Plan: Started on Zosyn Await c/s Qualifiers: Urinary tract infection type: acute cystitis Hematuria presence: with hematuria Qualified Codes: N30.01 - Acute cystitis with hematuria (3) Rheumatoid arthritis Status: Acute Assessment & Plan: On multiple immune suppressant Will hold Resume home pain meds prn Qualifiers: Rheumatoid arthritis location: multiple sites Rheumatoid factor presence: unspecified presence Qualified Codes: M06.9 - Rheumatoid arthritis, unspecified (4) Transaminitis Assessment & Plan: Likely due to sepsis Trend (5) Atrial fibrillation Assessment & Plan: Rate was 65 on arrival Monitor on telemetry Will consult Cardiology Qualifiers: Atrial fibrillation type: paroxysmal Qualified Codes: I48.0 - Paroxysmal atrial fibrillation (6) Elevated INR Status: Acute Assessment & Plan: Likely multifactorial from Xarelto and sepsis (7) Prophylactic measure Assessment & Plan: INr 2.6 from Xarelto NPO IVF per sepsis protocol SERGIO RAMIREZ MD Nov 20, 2017 12:07
[2017-11-20] MEDS ORDERED: NS (IVPB) 0 ML ONE (12:26)
[2017-11-20] MEDS ORDERED: VANCOMYCIN 1000 MG/VIAL ONE (12:27)
--- NOTE | 2017-11-20 12:35 | Diagnostic Imaging Report ---
Indication: Evaluate line placement. Comparison: Prior examination earlier the same day. Findings: There is cardiomegaly. There is mild venous congestion. There is now right internal jugular venous catheter which has its tip at the cavoatrial junction. There is no pleural effusion or pneumothorax. Mediastinum is unremarkable. Impression: The right intrajugular central venous catheter is in satisfactory position. Cardiomegaly and mild venous congestion. Dictated by: Dictated on workstation # [id number]
[2017-11-20] MEDS ORDERED: VANCOMYCIN INJECTION 1,250 MG in NS (IVPB) 250 ML IV NR (12:37)
--- NOTE | 2017-11-20 14:08 | Consultation-Cardiology ---
HPI-Cardiology Cardiology Consultation: Date of Consultation 11/20/17 Date of Admission Attending Physician Sigrid Ramirez MD Admitting Physician Desmond Myers MD Consulting Physician Tammy BROWN MD HPI: Time Seen by Provider: 13:30 Chief Complaint: Sepsis This is a 82-year-old lady with history of rheumatoid arthritis on prednisone. She also has history of atrial fibrillation after previous hip surgery. She presented to the emergency department due to fever and confusion. She complained of fever and night sweats for the last few days. Lab work was done as an outpatient which included urinalysis and blood cultures but unavailable to the ER. This morning the patient had altered mental status and therefore as was brought to the ER. She was found to be in septic shock and treated aggressively with fluid resuscitation. The patient denied any cardiac symptoms including chest pain, shortness of breath, palpitations, syncope, near-syncope, lower extremity swelling. She is being admitted to the ICU for appropriate management of septic shock. Review of Systems-Cardiology Review of Systems Constitutional: chills, fever Eyes: No As described under HPI, No no symptoms reported, No blindness, No blurred vision, No contact lenses, No drainage, No decreased acuity, No foreign body sensation, No pain, No vision change Ears/Nose/Throat: No As described under HPI, No no symptoms reported, No chronic hearing loss, No ear discharge, No ear pain, No nasal drainage, No ulcerations Respiratory: No no symptoms reported; As described under HPI; No As described under HPI, No cough, No orthopnea, No shortness of breath, No SOB with excertion Cardiovascular: No no symptoms reported; As described under HPI; No As described under HPI, No chest pain, No edema, No irregular heart rate, No lightheadedness, No palpitations Gastrointestinal: No no symptoms reported, No As described under HPI, No abdomen distended, No abdominal pain, No blood streaked bowels, No constipation , No diarrhea, No nausea, No vomiting, No stool coloration changes Genitourinary: As described under HPI; No burning, No dysuria, No discharge, No frequency, No flank pain, No hematuria, No urgency : No Musculoskeletal: No no symptoms reported, No As describe under HPI, No back pain, No gout, No joint pain, No joint swelling, No muscle pain, No muscle stiffness, No neck pain, No other Skin: No no symptoms reported, No As described under HPI, No change in color, No change in hair/nails, No dryness, No lesions, No lumps, No rash, No other, No skin related problems, No ulcerations, No rash on exposed areas, No ulcerations on exposed areas Psychiatric/Neurological: As described under HPI, other (altered mental status on admission.); No anxiety, No depression, No seizure, No focal weakness, No syncope Hematologic: No bleeding abnormalities All Other Systems Reviewed Negative Unless Noted: Yes FEM-Phinci-Kemhvo Hx Patient Social History Marrital Status: Employed/Student: retired Alcohol Use: Denies Use Recreational Drug Use: No Smoking Status: Never a Smoker Recent Foreign Travel: No Recent Infectious Disease Expo: No Hospitalization with Isolation: Denies Immunizations Up To Date Date of Pneumonia Vaccine: May 02, 2010 Date of Influenza Vaccine: Apr 30, 2014 Past Medical History PMH As described under Assessment. Family Medical History Family History: Alzheimer's disease 19 MOTHER FH: Hodgkins disease 19 FATHER Allergies and Home Medications Allergies Coded Allergies: No Known Drug Allergies (Verified , 10/29/08) Home Medications Acetaminophen 500 Mg Tablet, 1,000 MG PO Q6H, (Reported) Alendronate Sodium 70 Mg Tablet.eff, 70 MG PO DAILY, (Reported) Docusate Sodium 100 Mg Capsule, 100 MG PO BID, (Reported) Ferrous Gluconate 256 Mg Tablet, 150 MG PO DAILY, (Reported) Folic Acid 1 Mg Tablet, 1 MG PO DAILY, (Reported) Latanoprost 2.5 Ml Soln, 2.5 ML OD HS, (Reported) Methotrexate Sodium 2.5 Mg/Dose-Pack Tab.ds.pk, 2.5 MG PO NEEDED, (Reported) Metoprolol Tartrate 50 Mg Tablet, 50 MG PO DAILY, (Reported) Multivitamin 1 Each Tablet, 1 EACH PO DAILY, (Reported) Nitrofurantoin Monohyd/M-Cryst 100 Mg Capsule, 1 TAB PO BID Prescribed by: ZORAIDA SWANSON on 08/28/17 4176 Prednisone 5 Mg Tablet, 10 MG PO DAILY, (Reported) TAKES 2 (5MG) TABLETS Rivaroxaban 20 Mg Tablet, 20 MG PO DAILY, (Reported) Tetrahydrozoline Hcl 15 Ml Drops, 15 ML OP NEEDED, (Reported) Tramadol Hcl 50 Mg Tablet, 50 MG PO NEEDED, (Reported) Patient Home Medication List Home Medication List Reviewed: Yes Physical Exam-Cardiology Physical Exam Vital Signs/I&O 11/20/17 11/20/17 11/20/17 11/20/17 08:54 12:48 13:50 14:04 Temp 98.9 97.9 99.0 Pulse 65 60 64 57 Resp 18 18 22 B/P (MAP) 94/48 (63) 111/63 118/65 (82) Pulse Ox 93 94 94 O2 Delivery Room Air Room Air FiO2 93 Capillary Refill : Less Than 3 Seconds Constitutional: AAO x 3, well-developed HEENT: No PERRL, No normal ENT inspection, No TMs normal, No pharynx normal, No scleral icterus (R), No scleral icterus (L), No pale conjunctivae (R), No pale conjunctivae (L), No photophobia, No TM abnormal (R), No TM abnormal (L), No pharyngeal erythema, No tonsillar exudate, No other, No discharge, No EOMI, No hearing is well preserved, No hard of hearing, No oral hygience is good, No ulceration, No xanthelasmas are seen Neck: No non-tender, No full range of motion, No supple, No normal inspection, No carotid bruit, No limited range of motion, No lymphadenopathy (R), No lymphadenopathy (L), No tender lateral, No tender midline, No thyromegaly, No other, No carotid pulses are 2 + bilaterally, No with good upstrokes Respiratory: No accessory muscle use, No respiratory distress, No chest tender , No chest expansion is symmetric; chest is bilaterally symmetric; No lungs clear to percussion; lungs clear to auscultation; No crackles, No rhonchi, No rales, No stridor, No wheezing, No pleural rub, No other Cardiovascular: regular rate-rhythm; No irregularly irregular, No extra beats, No parasternal heave is noted, No JVD, No edema, No bradycardia, No tachycardia , No point of maximal impulse, No cardiac thrills are palpable; S1 and S2; No gallop/S3, No gallop/S4, No diastolic murmur, No systolic murmur, No friction rub, No click, No other Gastrointestinal: No tender, No soft, No round, No distended, No pulsatile mass , No organomegaly, No guarding, No rebound, No tenderness, No hernia, No mass, No audible bowel sounds, No abnormal bowel sounds, No abdominal bruits, No spleenomegaly, No other Rectal: deferred Extremities: No normal range of motion, No non-tender, No normal inspection, No pedal edema, No calf tenderness, No normal capillary refill, No pelvis stable , No calf tenderness, No inflammation, No pedal edema, No slow capillary refill , No swelling, No other, No abrasion, No clubbing, No cyanosis, No ecchymosis, No laceration, No no lower extremity edema bilateral, No significant edema, No tenderness, No wound Neurologic/Psychiatric: no motor/sensory deficits, alert, normal mood/affect, oriented x 3 Skin: normal color; No warm/dry, No cyanosis, No cool, No diaphoresis, No damp ; ecchymosis; No jaundice, No mottled, No pallor, No rash, No tattoos/piercings , No ulcerations, No rash on exposed areas, No ulcerations on exposed areas, No other Data Review Labs Laboratory Tests 11/20/17 08:30: White Blood Count 5.3, Red Blood Count 4.99, Hemoglobin 15.8, Hematocrit 46, Mean Corpuscular Volume 92, Mean Corpuscular Hemoglobin 32, Mean Corpuscular Hemoglobin Concent 34, Red Cell Distribution Width 15.2H, Platelet Count 137, Mean Platelet Volume 9.7, Neutrophils (%) (Auto) 81H, Lymphocytes (%) (Auto) 14 , Monocytes (%) (Auto) 2, Eosinophils (%) (Auto) 3, Basophils (%) (Auto) 1, Neutrophils # (Auto) 4.3, Lymphocytes # (Auto) 0.7L, Monocytes # (Auto) 0.1, Eosinophils # (Auto) 0.1, Basophils # (Auto) 0.0, Prothrombin Time 27.7H, INR Comment 2.6H, Activated Partial Thromboplast Time 37H, Sodium Level 136, Potassium Level 3.9, Chloride Level 102, Carbon Dioxide Level 22, Anion Gap 12, Blood Urea Nitrogen 21H, Creatinine 0.79, Estimat Glomerular Filtration Rate > 60, BUN/Creatinine Ratio 27, Glucose Level 117H, Lactic Acid Level 2.95*H, Calcium Level 9.2, Total Bilirubin 1.4H, Aspartate Amino Transf (AST/SGOT) 124H , Alanine Aminotransferase (ALT/SGPT) 108H, Alkaline Phosphatase 137H, Total Protein 5.9L, Albumin 3.2, TSH [place] Testing 2.01 11/20/17 09:02: Urine Color YELLOW, Urine Clarity CLOUDYH, Urine pH 6, Urine Specific [place] 1.010L, Urine Protein 2+H, Urine Glucose (UA) NEGATIVE, Urine Ketones NEGATIVE, Urine Nitrite NEGATIVE, Urine Bilirubin 1+H, Urine Urobilinogen NORMAL, Urine Leukocyte Esterase 1+H, Urine RBC (Auto) 5+H, Urine RBC >100H, Urine WBC 5-10H, Urine Squamous Epithelial Cells 2-5, Urine Crystals NONE, Urine Bacteria FEWH, Urine Casts PRESENT, Urine Granular Casts 0-2H, Urine Mucus NEGATIVE, Urine Culture Indicated YES 11/20/17 10:49: Lactic Acid Level 1.67 Microbiology 11/20/17 Influenza Types A,B Antigen ([facility]) - Final, Complete ECG Impression ECG Initial ECG Rhythm: Normal Sinus A/P-Cardiology Assessment/Admission Diagnosis Septic shock due to UTI. Paroxysmal atrial fibrillation. Supratherapeutic INR. Rheumatoid arthritis. Elevated LFTs. Plan Septic shock due to UTI. Elevated lactic acid. Central line placed. Aggressive IV fluid resuscitation. Current blood pressure systolic 112 mmHg. Which is much better than initial systolic blood pressure. Broad-spectrum antibiotics. Blood cultures. Echocardiogram to assess LV function. Previous echocardiogram done in 2016 showed normal LV function with no significant valvular heart disease. Paroxysmal atrial fibrillation. On Xarelto and metoprolol. Continue if no contraindication. Patient is in sinus rhythm. Supratherapeutic INR. Likely due to severe sepsis. Patient is also on Xarelto. Rheumatoid arthritis. On methotrexate and prednisone. Elevated LFTs. Likely secondary to acute sepsis. Continue to follow. Complicated patient with multiple medical issues. Thank you for your consultation. Please call me if you have any questions. Wilmar Brown MD, FACP, FACC, FSCAI, FHRS, CCDS Interventional Cardiology Cardiac Electrophysiology Vascular Medicine and Endovascular Interventions Tammy BROWN MD Nov 20, 2017 2:07 pm
[2017-11-20] MEDS ORDERED: ANTACID SUSP 30 ML UDC (MYLANTA) PO PRN (14:45)
[2017-11-20] MEDS ORDERED: MELATONIN 3 MG TABLET PO PRN (14:45)
[2017-11-20] MEDS ORDERED: ONDANSETRON 4 MG/2 ML (SDV) Z0FRAN IV PRN (14:45)
[2017-11-20] MEDS ORDERED: MILK OF MAGNESIA 400 MG/5 ML 30 ML UDC PO PRN (14:45)
[2017-11-20] MEDS ORDERED: BENZONATATE 100 MG (TESSALON) CAPSULE PO PRN (14:45)
[2017-11-20] MEDS: PIPERACILLIN SODIUM/TAZOBACTAM 4.5 GM in NS (IVPB) 100 ML IV SCH (16:46)
[2017-11-20] MEDS: ACETAMINOPHEN 325 MG TABLET/CAPLET (TYLENOL) PO PRN (18:39)
[2017-11-21] VITALS (24 sets, daily range): BP systolic 15–178; BP diastolic 49–104
[2017-11-21] MEDS: PIPERACILLIN SODIUM/TAZOBACTAM 4.5 GM in NS (IVPB) 100 ML IV SCH ×3 (00:10→13:18)
[2017-11-21] MEDS: ACETAMINOPHEN 325 MG TABLET/CAPLET (TYLENOL) PO PRN (00:12)
[2017-11-21 03:41] LABS: BASOPHILS % (AUTO) 1 % (0-10); EOSINOPHILS # (AUTO) 0.1 10^3/uL (0.0-0.3); EOSINOPHILS % (AUTO) 2 % (0-10); HEMATOCRIT 40 % (35-52); HEMOGLOBIN 13.6 G/DL (11.5-16.0); LYMPHOCYTES # (AUTO) 1.3 X 10^3 (1.0-4.0); LYMPHOCYTES % (AUTO) 23 % (12-44); MEAN CORPUSCULAR HEMOGLOBIN 32 PG (25-34); MEAN CORPUSCULAR HGB CONC 34 G/DL (32-36); MEAN CORPUSCULAR VOLUME 93 FL (80-99); MEAN PLATELET VOLUME 10.5 FL (7.4-10.4); MONOCYTES # (AUTO) 0.2 X 10^3 (0.0-1.0); MONOCYTES % (AUTO) 3 % (0-12); NEUTROPHILS % (AUTO) 72 % (42-75); PLATELET COUNT 110 10^3/uL (130-400); RED BLOOD COUNT 4.27 10^6/uL (4.35-5.85); RED CELL DISTRIBUTION WIDTH 15.4 % (10.0-14.5); WHITE BLOOD COUNT 5.6 10^3/uL (4.3-11.0)
[2017-11-21 03:54] LABS: INR 1.5 (0.8-1.4); PROTHROMBIN TIME PATIENT 17.9 SEC (12.2-14.7)
[2017-11-21 04:02] LABS: ALANINE AMINOTRANSFERASE 103 U/L (0-55); ALBUMIN 2.5 GM/DL (3.2-4.5); ALKALINE PHOSPHATASE 156 U/L (40-136); BILIRUBIN,TOTAL 1.4 MG/DL (0.1-1.0); BUN/CREATININE RATIO 20; CALCIUM 7.6 MG/DL (8.5-10.1); CARBON DIOXIDE 18 MMOL/L (21-32); CHLORIDE 113 MMOL/L (98-107); CREATININE SERUM 0.61 MG/DL (0.60-1.30); GFR ESTIMATED > 60; GLUCOSE 76 MG/DL (70-105); POTASSIUM 3.1 MMOL/L (3.6-5.0); SODIUM 140 MMOL/L (135-145); TOTAL PROTEIN 4.3 GM/DL (6.4-8.2)
[2017-11-21 04:26] LABS: MAGNESIUM 1.4 MG/DL (1.8-2.4)
[2017-11-21] MEDS: MAGNESIUM 1 GM/100 ML IVPB 100 ML IV SCH ×3 (05:32→06:29)
[2017-11-21] MEDS: KCL 20 MEQ TAB (K-DUR) PO SCH (05:32)
[2017-11-21] MEDS: POTASSIUM CL 10MEQ/50ML IVPB 50 ML IV SCH ×5 (05:32→09:12)
[2017-11-21] MEDS: NS IV 1000 ML 1,000 ML IV SCH (05:51)
[2017-11-21] MEDS ORDERED: ACETAMINOPHEN 650 MG SUPP (TYLENOL) ONE (07:20)
--- NOTE | 2017-11-21 07:45 | Diagnostic Imaging Report ---
Indication: Dyspnea Portable chest shows cardiomegaly with normal vascularity. There are interstitial infiltrates present. No alveolar consolidations are seen. There is no effusion or pneumothorax. IJ line tip is in the superior vena cava right atrial junction region. These findings are similar to the prior study from 11/20/2017. IMPRESSION: Stable chest. Dictated by: Dictated on workstation # [id number]
--- NOTE | 2017-11-21 09:09 | Progress Note-Hospitalist ---
Subjective HPI/CC On Admission Date Seen by Provider: Nov 21, 2017 Time Seen by Provider: 09:04 Pt is an 82yoCF with a PMH of RA on multiple immunsuppressants and a-fib who presented to the ER due to fever and confusion and was admitted for septic shock. Subjective/Events-last exam Pt is confused. Complains of pain but when asked where she is not sure. Otherwise no complaints. Discussed with RN. Febrile this AM and confused. No other concerns. Focused Exam Lactate Level 11/20/17 08:30: Lactic Acid Level 2.95*H 11/20/17 10:49: Lactic Acid Level 1.67 Time of Focused Exam: 12:00 Objective Exam Vital Signs Vital Signs Date Time Temp Pulse Resp B/P (MAP) Pulse Ox O2 Delivery O2 Flow Rate FiO2 11/21/17 08:00 69 30 161/89 (113) 91 Room Air 11/21/17 00:12 100.8 11/20/17 14:04 93 Capillary Refill : Less Than 3 Seconds General Appearance: No Apparent Distress, WD/WN Respiratory: Lungs Clear, No Respiratory Distress Cardiovascular: Regular Rate, Rhythm, No Murmur Extremity: No Calf Tenderness, No Pedal Edema, Other (deformities of toes consistent RA) Neurologic/Psychiatric: Alert, Disoriented Results/Procedures Lab Laboratory Tests 11/21/17 03:25 Patient resulted labs reviewed. Imaging: Reviewed Imaging Films, Reviewed Imaging Report Assessment/Plan Assessment and Plan Assess & Plan/Chief Complaint Septic Shock Diagnosis/Problems Diagnosis/Problems (1) Septic shock Assessment & Plan: Shock now resolved, BP stable overnight Urine culture shows no growth Await blood cultures Continue Vanc and Zosyn (2) Urinary tract infection Status: Acute Assessment & Plan: UA concerning for UTI but culture withno Growth Will Continue abx given clinical picture Qualifiers: Urinary tract infection type: acute cystitis Hematuria presence: with hematuria Qualified Codes: N30.01 - Acute cystitis with hematuria (3) Rheumatoid arthritis Status: Acute Assessment & Plan: On multiple immune suppressant Will hold Resume home pain meds prn Qualifiers: Rheumatoid arthritis location: multiple sites Rheumatoid factor presence: unspecified presence Qualified Codes: M06.9 - Rheumatoid arthritis, unspecified (4) Transaminitis Assessment & Plan: Likely due to sepsis and RA meds Trend (5) Atrial fibrillation Assessment & Plan: Monitor on telemetry Cardiology consulted, appreciate recs Qualifiers: Atrial fibrillation type: paroxysmal Qualified Codes: I48.0 - Paroxysmal atrial fibrillation (6) Elevated INR Status: Acute Assessment & Plan: Likely multifactorial from Xarelto and sepsis Improved (7) Prophylactic measure Assessment & Plan: INR 1.5- On Xarelto NPO D51/2NS at 100cc/hr Clinical Quality Measures DVT/VTE Risk/Contraindication: Risk Factor Score Per Nursin RFS Level Per Nursing on Admit: 4+=Very High SERGIO ROMERO MD Nov 21, 2017 9:09 am
[2017-11-21] MEDS: APAP 325 MG/10.15 ML LIQ (TYLENOL) UDC PO PRN ×2 (09:12→14:37)
[2017-11-21] MEDS ORDERED: LATA2.5D5 OU (12:25)
[2017-11-21] MEDS ORDERED: TRAM50TA2 PO (12:25)
[2017-11-21] MEDS ORDERED: METH25VI57 SC (12:25)
[2017-11-21] MEDS ORDERED: PRD10T PO (12:25)
[2017-11-21] MEDS ORDERED: RIVA20TA PO (12:25)
[2017-11-21] MEDS ORDERED: METO-370 PO (12:25)
[2017-11-21] MEDS ORDERED: MULT1TAB69 PO (12:54)
[2017-11-21] MEDS ORDERED: ACET-93 PO (12:54)
[2017-11-21] MEDS ORDERED: CARB15DR OU (13:07)
[2017-11-21] MEDS ORDERED: FOLI0.8C PO (13:07)
[2017-11-21] MEDS: VANCOMYCIN 750 MG/NS 250 ML IVPB IV SCH ×2 (13:18)
[2017-11-21] MEDS: FLUCONAZOLE 200 MG/100 ML 50 ML, SYRINGE-IVPB 1 SYRINGE IV SCH ×2 (14:18)
--- NOTE | 2017-11-21 14:55 | Cardiology Progress Note ---
Cardiology SOAP Progress Note Subjective: Patient is having chills, rigors and fever. Objective: I&O/Vital Signs 11/21/17 11/21/17 11/21/17 11/21/17 03:00 04:00 04:00 05:00 Pulse 73 74 74 Resp 35 31 32 B/P (MAP) 163/78 (106) 144/49 (80) 127/98 (108) Pulse Ox 94 95 91 91 O2 Delivery Room Air Room Air Room Air Room Air 11/21/17 11/21/17 11/21/17 11/21/17 06:00 07:00 07:00 07:00 Temp 103.0 Pulse 72 68 89 Resp 32 38 B/P (MAP) 144/87 (106) 165/90 (115) Pulse Ox 92 92 O2 Delivery Room Air Room Air 11/21/17 11/21/17 11/21/17 11/21/17 08:00 08:00 09:00 10:00 Pulse 69 68 76 Resp 30 28 31 B/P (MAP) 161/89 (113) 138/77 (97) 129/73 (91) Pulse Ox 91 95 91 90 O2 Delivery Room Air Room Air Room Air Room Air 11/21/17 11/21/17 11/21/17 11/21/17 10:00 11:00 11:00 11:00 Temp 101.0 99.0 Pulse 68 Resp 25 B/P (MAP) 132/66 (88) Pulse Ox 92 O2 Delivery Room Air Room Air 11/21/17 11/21/17 11/21/17 11/21/17 12:00 12:00 13:00 13:00 Pulse 68 66 69 Resp 27 25 B/P (MAP) 126/67 (86) 146/70 (95) Pulse Ox 91 95 94 O2 Delivery Room Air Room Air Room Air 11/21/17 14:00 Pulse 81 Resp 21 B/P (MAP) 161/99 (119) Pulse Ox 94 O2 Delivery Room Air 11/21/17 00:00 Intake Total 3752.5 ml Output Total 1825 ml Balance 1927.5 ml Weight (Pounds): 137 Weight (Ounces): 5.0 Weight (Calculated Kilograms): [id number] Constitutional: AAO x 3, well-developed, other (chills and rigors.) Respiratory: No accessory muscle use, No respiratory distress, No chest tender , No chest expansion is symmetric; chest is bilaterally symmetric; No lungs clear to percussion; lungs clear to auscultation; No crackles, No rhonchi, No rales, No stridor, No wheezing, No pleural rub, No other Cardiovascular: regular rate-rhythm; No irregularly irregular, No extra beats, No parasternal heave is noted, No JVD, No edema, No bradycardia, No tachycardia , No point of maximal impulse, No cardiac thrills are palpable; S1 and S2; No gallop/S3, No gallop/S4, No diastolic murmur, No systolic murmur, No friction rub, No click, No other Gastrointestional: No tender, No soft, No round, No distended, No pulsatile mass, No organomegaly, No guarding, No rebound, No tenderness, No hernia, No mass, No audible bowel sounds, No abnormal bowel sounds, No abdominal bruits, No spleenomegaly, No other Extremities: No normal range of motion, No non-tender, No normal inspection, No pedal edema, No calf tenderness, No normal capillary refill, No pelvis stable , No calf tenderness, No inflammation, No pedal edema, No slow capillary refill , No swelling, No other, No abrasion, No clubbing, No cyanosis, No ecchymosis, No laceration, No no lower extremity edema bilateral, No significant edema, No tenderness, No wound Neurologic/Psychiatric: no motor/sensory deficits, alert, normal mood/affect, oriented x 3 Skin: warm/dry; No diaphoresis, No rash Results/Procedures: Labs Laboratory Tests 11/21/17 03:25: White Blood Count 5.6, Red Blood Count 4.27L, Hemoglobin 13.6, Hematocrit 40, Mean Corpuscular Volume 93, Mean Corpuscular Hemoglobin 32, Mean Corpuscular Hemoglobin Concent 34, Red Cell Distribution Width 15.4H, Platelet Count 110L, Mean Platelet Volume 10.5H, Neutrophils (%) (Auto) 72, Lymphocytes (%) (Auto) 23 , Monocytes (%) (Auto) 3, Eosinophils (%) (Auto) 2, Basophils (%) (Auto) 1, Neutrophils # (Auto) 4.0, Lymphocytes # (Auto) 1.3, Monocytes # (Auto) 0.2, Eosinophils # (Auto) 0.1, Basophils # (Auto) 0.0, Prothrombin Time 17.9H, INR Comment 1.5H, Sodium Level 140, Potassium Level 3.1L, Chloride Level 113#H, Carbon Dioxide Level 18L, Anion Gap 9, Blood Urea Nitrogen 12, Creatinine 0.61, Estimat Glomerular Filtration Rate > 60, BUN/Creatinine Ratio 20, Glucose Level 76, Calcium Level 7.6L, Phosphorus Level 2.0L, Magnesium Level 1.4L, Total Bilirubin 1.4H, Aspartate Amino Transf (AST/SGOT) 159H, Alanine Aminotransferase (ALT/SGPT) 103H, Alkaline Phosphatase 156H, Total Protein 4.3L , Albumin 2.5L Microbiology 11/20/17 Blood Culture - Preliminary, Resulted No growth 11/20/17 Gram Stain - Final, Resulted 11/20/17 Sputum Culture - Preliminary, Resulted Presumptive Twila Albicans 11/20/17 Urine Culture - Preliminary, Resulted NO GROWTH A/P: Assessment/Dx: Septic shock due to UTI. Fungal pneumonia Paroxysmal atrial fibrillation. Supratherapeutic INR. Rheumatoid arthritis. Elevated LFTs. Plan: Septic shock due to UTI. Elevated lactic acid. Central line placed. Aggressive IV fluid resuscitation. Current blood pressure systolic 160 mmHg; significantly improved than her presenting blood pressure. Broad-spectrum antibiotics to Zosyn and vancomycin. Blood cultures pending. Echocardiogram to assess LV function. Previous echocardiogram done in 2015 showed normal LV function with no significant valvular heart disease. Possible fungal pneumonia: Sputum growing Twila albicans. Immunosuppressed. Started on Diflucan. Paroxysmal atrial fibrillation. On Xarelto and metoprolol. Continue if no contraindication. Patient is in sinus rhythm. Supratherapeutic INR. Likely due to severe sepsis. Patient is also on Xarelto. Rheumatoid arthritis. On methotrexate and prednisone. Elevated LFTs. Likely secondary to acute sepsis. Continue to follow. Complicated patient with multiple medical issues. Thank you for your consultation. Please call me if you have any questions. Wilmar Brown MD, FACP, FACC, FSCAI, FHRS, CCDS Interventional Cardiology Cardiac Electrophysiology Vascular Medicine and Endovascular Interventions Focused Exam Lactate Level 11/20/17 08:30: Lactic Acid Level 2.95*H 11/20/17 10:49: Lactic Acid Level 1.67 Time of Focused Exam: 12:00 Tammy BROWN MD Nov 21, 2017 2:55 pm
[2017-11-21] MEDS ORDERED: fentaNYL INJECTION 100 MCG/2 ML AMP IVP PRN (18:15)
[2017-11-21] MEDS ORDERED: NS IV 1000 ML 1,000 ML IV ONE (22:45)
[2017-11-22] VITALS (23 sets, daily range): BP systolic 85–163; BP diastolic 45–97
[2017-11-22] MEDS: PIPERACILLIN SODIUM/TAZOBACTAM 4.5 GM in NS (IVPB) 100 ML IV SCH ×4 (00:42→23:47)
[2017-11-22] MEDS ORDERED: SODIUM BICARB 8.4% 50 MEQ/50 ML (ABBOTT) SYR IV ONE (04:00)
[2017-11-22] MEDS ORDERED: NS IV 1000 ML 1,000 ML IV SCH (04:00)
[2017-11-22] MEDS: ALBUMIN 5% 12.5 GM/250 ML 250 ML IV SCH ×2 (04:06→05:21)
[2017-11-22 04:24] LABS: BASOPHILS # (AUTO) 0.1 10^3/uL (0.0-0.1); BASOPHILS % (AUTO) 1 % (0-10); EOSINOPHILS % (AUTO) 0 % (0-10); HEMATOCRIT 36 % (35-52); HEMOGLOBIN 12.6 G/DL (11.5-16.0); LYMPHOCYTES # (AUTO) 1.7 X 10^3 (1.0-4.0); LYMPHOCYTES % (AUTO) 24 % (12-44); MEAN CORPUSCULAR HEMOGLOBIN 31 PG (25-34); MEAN CORPUSCULAR HGB CONC 35 G/DL (32-36); MEAN CORPUSCULAR VOLUME 89 FL (80-99); MEAN PLATELET VOLUME 10.5 FL (7.4-10.4); MONOCYTES # (AUTO) 0.4 X 10^3 (0.0-1.0); MONOCYTES % (AUTO) 6 % (0-12); NEUTROPHILS % (AUTO) 70 % (42-75); PLATELET COUNT 69 10^3/uL (130-400); RED BLOOD COUNT 4.02 10^6/uL (4.35-5.85); RED CELL DISTRIBUTION WIDTH 15.2 % (10.0-14.5); WHITE BLOOD COUNT 7.2 10^3/uL (4.3-11.0)
[2017-11-22 04:43] LABS: ALANINE AMINOTRANSFERASE 116 U/L (0-55); ALKALINE PHOSPHATASE 159 U/L (40-136); BUN/CREATININE RATIO 18; CALCIUM 6.7 MG/DL (8.5-10.1); CARBON DIOXIDE 26 MMOL/L (21-32); CHLORIDE 101 MMOL/L (98-107); CREATININE SERUM 0.55 MG/DL (0.60-1.30); GFR ESTIMATED > 60; GLUCOSE 88 MG/DL (70-105); MAGNESIUM 1.4 MG/DL (1.8-2.4); PHOSPHORUS 1.6 MG/DL (2.3-4.7); POTASSIUM 2.8 MMOL/L (3.6-5.0); SODIUM 137 MMOL/L (135-145); TOTAL PROTEIN 3.5 GM/DL (6.4-8.2)
[2017-11-22] MEDS: POTASSIUM CL 10MEQ/50ML IVPB 50 ML IV SCH ×6 (04:54→08:00)
[2017-11-22] MEDS: MAGNESIUM 1 GM/100 ML IVPB 100 ML IV SCH ×5 (04:54→07:53)
[2017-11-22] MEDS: KCL 20 MEQ TAB (K-DUR) PO SCH (04:55)
--- NOTE | 2017-11-22 05:44 | Pulmonary Consultation ---
History of Present Illness History of Present Illness Date of Consultation 11/22/17 05:39 Time Seen by Provider: 05:58 Date of Admission History of Present Illness 82yo with hx of RA treated with methotrexate, prednisone, presented to ED secondary to worsening confusion and fever. Symptoms started 4-5 days ago with feveres and new onset incontinence. Confusion continued to progress when family brought pt to ED. Pt was hypotensive and found to be in septic shock. She was started on vanco and zosyn along with severe sepsis protocol. Pt does have a central line and has not required pressors. She responded to aggressive IVF. This morning patient has increased lethargy and is difficult to arouse. unable to obtain accurate ROS secondary to MS. I am consulted for ICU management. Allergies and Home Medications Allergies Coded Allergies: morphine (Verified Adverse Reaction, Intermediate, 11/21/17) CAUSES SEVERE CONFUSION Home Medications Acetaminophen 500 Mg Tablet, 500-1,000 MG PO Q6H PRN for PAIN-MILD, (Reported) TAKES 1-2 OF A (500 MG) TABLET / TAKES NO MORE THAN 4 TABLETS PER DAY DIRECTED BY DR. NORRIS Carboxymethylcellulose Sodium 15 Ml Drops, 1 DROP OU PRN PRN for DRY EYES, ( Reported) Folic Acid 0.8 Mg Capsule, 0.8 MG PO DAILY, (Reported) Latanoprost 2.5 Ml Drops, 1 DROP OU HS, (Reported) Methotrexate Sodium 25 Mg/1 Ml Vial, 15 MG SC [place], (Reported) PATIENT RECEIVES 0.6 ML OF A (50MG/2ML) INJECTION Metoprolol Succinate 50 Mg Tab.er.24h, 50 MG PO DAILY, (Reported) Multivitamin 1 Each Tablet, 1 TAB PO DAILY, (Reported) Prednisone 10 Mg Tab, 10 MG PO DAILY, (Reported) Rivaroxaban 20 Mg Tablet, 20 MG PO DAILY, (Reported) Past Uoeapbl-Wctduk-Nvgaya Hx Past Med/Social Hx: Reviewed Nursing Past Med/Soc Hx, Reviewed and Corrections made Patient Social History Alcohol Use: Denies Use Recreational Drug Use: No Smoking Status: Never a Smoker Recent Foreign Travel: No Contact w/Someone Who Travel: No Recent Infectious Disease Expo: No Recent Hopitalizations: No (reaction to b/p medication and had three children.) Physical Abuse: No Sexual Abuse: No Immunizations Up To Date Date of Pneumonia Vaccine: May 02, 2010 Date of Influenza Vaccine: Apr 30, 2014 Seasonal Allergies Seasonal Allergies: No Past Medical History Surgeries: Yes (toe surgery and ear surgery,joint removed from toes) Orthopedic Respiratory: No Pneumonia Cardiac: Yes Hypertension Neurological: No Reproductive Disorders: No Genitourinary: No Gastrointestinal: Yes Gastrointestinal Bleed, Ulcer Musculoskeletal: Yes (left and right broken hips in 2013) Rheumatoid Arthritis Endocrine: No HEENT: Yes Cataract Hearing Impairment: Hard of Hearing Cancer: No Psychosocial: No Nursing Suicide Risk Score: 0 Integumentary: No Blood Disorders: No Adverse Reaction/Blood Tranf: No Family Medical History Reviewed Nursing Family Hx Alzheimer's disease 19 MOTHER FH: Hodgkins disease 19 FATHER Review of Systems Time Seen by Provider: 05:58 Exam Exam Vital Signs Date Time Temp Pulse Resp B/P (MAP) Pulse Ox O2 Delivery O2 Flow Rate FiO2 11/22/17 04:00 93 Room Air 11/22/17 04:00 98.5 11/22/17 02:00 101 38 98/59 (72) 93 Room Air 11/22/17 01:00 107 11/22/17 00:44 107 35 135/89 (104) 94 Room Air 11/22/17 00:00 93 Room Air 11/22/17 00:00 98.5 11/21/17 23:00 105 37 151/94 (113) 93 Room Air 11/21/17 22:00 82 38 174/104 (127) 93 Room Air 11/21/17 21:00 93 35 178/102 (127) 94 Room Air 11/21/17 20:20 88 Room Air 11/21/17 20:00 93 Room Air 11/21/17 20:00 99.7 11/21/17 20:00 85 29 169/96 (120) 90 Room Air 11/21/17 19:00 94 11/21/17 19:00 90 28 170/89 (116) 92 Room Air 11/21/17 18:00 86 30 15/100 (72) 92 Room Air 11/21/17 17:00 75 28 136/79 (98) 89 Room Air 11/21/17 16:00 77 35 140/91 (107) 92 Room Air 11/21/17 16:00 92 Room Air 11/21/17 16:00 99.3 11/21/17 15:00 92 35 152/102 (119) 92 Room Air 11/21/17 14:00 81 21 161/99 (119) 94 Room Air 11/21/17 13:00 69 11/21/17 13:00 66 25 146/70 (95) 94 Room Air 11/21/17 12:00 95 Room Air 11/21/17 12:00 68 27 126/67 (86) 91 Room Air 11/21/17 11:00 68 25 132/66 (88) 92 Room Air 11/21/17 11:00 Room Air 11/21/17 11:00 99.0 11/21/17 10:00 101.0 11/21/17 10:00 76 31 129/73 (91) 90 Room Air 11/21/17 09:00 68 28 138/77 (97) 91 Room Air 11/21/17 08:00 95 Room Air 11/21/17 08:00 69 30 161/89 (113) 91 Room Air 11/21/17 07:00 89 11/21/17 07:00 68 38 165/90 (115) 92 Room Air 11/21/17 07:00 103.0 11/21/17 06:00 72 32 144/87 (106) 92 Room Air I & O 11/22/17 07:00 Intake Total 2330 ml Output Total 4100 ml Balance -1770 ml General Appearance: WD/WN, Mild Distress HEENT: PERRL/EOMI, Moist Mucous Membranes; No Scleral Icterus (L), No Scleral Icterus (R) Neck: Non Tender, Supple; No JVD, No Thyromegaly Respiratory: Lungs Clear, Decreased Breath Sounds Cardiovascular: No Murmur, Tachycardia Capillary Refill: Less Than 3 Seconds Peripheral Pulses: 2+ Dorsalis Pedis (R), 2+ Left Dors-Pedis (L) Extremity: Normal Capillary Refill, No Calf Tenderness, Other (deformities of bilateral feet consistent with severe RA) Neurologic/Psychiatric: No Motor/Sensory Deficits, Normal Mood/Affect, Other ( lethargic ) Skin: Normal Color, Warm/Dry; No Diaphoresis; Ecchymosis (on right prado); No Mottled, No Petechia Lymphatic: No Adenopathy Results Lab Laboratory Tests 11/20/17 08:30 11/21/17 03:25 11/22/17 04:15 Assessment/Plan Assessment/Plan Severe sepsis -Matias cultures pending -Zosyn and vancomycin -Diflucan UTI Afib - now controlled -Cardiology consulted Electrolyte abnormality -replace Elevated LFTs with metabolic encephalopathy -Check ammonia level -ABG -Accu check -Start solumedrol 40 IV Q6 - pt takes chronic prednisone at home 10mg daily -CHeck US of RUQ -check CT of head without and with contrast. Thrombocytopenia -monitor 255 LIDYA BACH DO Nov 22, 2017 05:44
[2017-11-22] MEDS ORDERED: POTASSIUM PHOSPHATE INJ 30 MM in NS (IVPB) 250 ML IV ONE (05:45)
[2017-11-22] MEDS ORDERED: D5 1/2 NS W/KCL 20 MEQ/L 1,000 ML IV ONE (06:02)
[2017-11-22] MEDS: D5 1/2 NS W/KCL 20 MEQ/L 1,000 ML IV SCH ×5 (06:30→23:52)
[2017-11-22] MEDS: methylPREDNISolone 40 MG/ML (Solu-MEDROL) VIAL IV SCH ×4 (06:30→23:47)
[2017-11-22 06:34] LABS: ABG BASE EXCESS -2.5 MMOL/L (-2.5-2.5); ABG OXYGEN SATURATION 98 % (94-100); ABG PCO2 25 MMHG (35-45); ABG PH 7.51 (7.37-7.43); ABG PO2 92 MMHG (79-93); ABG TCO2 20.9 MMOL/L (21.0-31.0)
[2017-11-22 06:35] LABS: ALLENS TEST YES-POS; INSPIRED O2 2L; PATIENT TEMP 98.5; VENTILATOR NO
--- NOTE | 2017-11-22 07:43 | Diagnostic Imaging Report ---
INDICATION: Dyspnea. Comparison made with prior examination up-regulation 11/21/2017 FINDINGS: The heart size is normal. There is some venous congestion. There is no pleural effusion or pneumothorax. Mediastinum is unremarkable. IMPRESSION: Mild central pulmonary venous congestion. Dictated by: Dictated on workstation # [id number]
[2017-11-22] MEDS: APAP 325 MG/10.15 ML LIQ (TYLENOL) UDC PO PRN (07:56)
[2017-11-22] MEDS: LACTULOSE SYRUP 10GM/15ML (ENULOSE) 30ML UDC PO SCH ×2 (07:56→22:57)
--- NOTE | 2017-11-22 08:20 | Diagnostic Imaging Report ---
PROCEDURE: US abdomen complete. TECHNIQUE: Multiple real-time grayscale images were obtained over the abdomen in various projections. INDICATION: Sepsis and right upper quadrant pain. The visualized pancreas is unremarkable. The liver is upper limits of normal in size at 18 cm. No discrete liver mass is identified. The portal vein is patent and demonstrates normal direction of flow. The gallbladder is without stones or sludge. No wall thickening is seen. No biliary duct dilatation is seen. Spleen is normal in size. Aorta is obscured distally. The proximal and mid aorta are nonaneurysmal. IVC is unremarkable. The left kidney is unremarkable. The right kidney demonstrates moderately dilated renal pelvis. No calculi are seen. There appears to be a small amount of fluid adjacent to the right kidney. IMPRESSION: 1. No evidence of cholelithiasis or acute cholecystitis. 2. Mildly dilated right renal pelvis but no definite calculi are detected. There is trace fluid in the right abdomen. No other significant abnormality is seen. Dictated by: Dictated on workstation # [id number]
[2017-11-22] MEDS ORDERED: NS 250 ML (IVPB) BAG IV ONE (08:30)
[2017-11-22] MEDS ORDERED: IOHEXOL 350 MG/ML 100 ML (OMNIPAQUE 350) VIAL IV ONE (08:30)
--- NOTE | 2017-11-22 09:55 | Progress Note-Hospitalist ---
Subjective HPI/CC On Admission Date Seen by Provider: Nov 22, 2017 Time Seen by Provider: 09:30 Pt is an 82yoCF with a PMH of RA on multiple immunsuppressants and a-fib who presented to the ER due to fever and confusion and was admitted for septic shock. Subjective/Events-last exam Septic shock was treated with aggressive IV fluid resuscitation but did not require pressor therapy Cardiology has been consulted Echocardiogram is being performed currently at the bedside Liver enzymes noted abdominal ultrasound shows no cholelithiasis so likely due to hypotension and liver congestion Patient is very hard of hearing and did have altered mental status so CT scan and CT chest will be performed to evaluate the altered mental status and a history of histoplasmosis respectively Appreciate Dr. Jorgensen's consultation and critical care management No pain is reported Reese catheter is in place and urinary output is good Patient appears to be very frail and considering immunosuppressive therapy overwhelming infection and septic shock could certainly provide a poor prognosis overall Review of Systems General: Fatigue, Malaise Neurological: Incoordination, Confusion Focused Exam Lactate Level 11/20/17 08:30: Lactic Acid Level 2.95*H 11/20/17 10:49: Lactic Acid Level 1.67 Time of Focused Exam: 12:00 Objective Exam Vital Signs Vital Signs Date Time Temp Pulse Resp B/P (MAP) Pulse Ox O2 Delivery O2 Flow Rate FiO2 11/22/17 08:00 93 Room Air 11/22/17 07:00 102.0 98 30 133/76 (95) 2.00 11/20/17 14:04 93 Capillary Refill : Less Than 3 Seconds General Appearance: No Apparent Distress, WD/WN, Chronically ill, Thin HEENT: Other ([place]-SPARKS severe even with aides in place) Neck: Normal Inspection, Non Tender Respiratory: Lungs Clear, Normal Breath Sounds, Decreased Breath Sounds (in bases) Cardiovascular: Irregularly Irregular, Tachycardia Gastrointestinal: Normal Bowel Sounds, Non Tender 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 Imaging: Reviewed Imaging Films, Reviewed Imaging Report Assessment/Plan Assessment and Plan Assess & Plan/Chief Complaint Assessment: Septic shock on immunosuppressives Plan: IVF Empiric abx Appreciate Cardiology and Pulmonology consultations Monitor closely ECHO evaluation CT head and CT chest evaluation Diagnosis/Problems Diagnosis/Problems (1) Septic shock Status: Acute (2) Altered mental status Status: Acute Qualifiers: Altered mental status type: delirium Qualified Codes: R41.0 - Disorientation, unspecified (3) Thrombocytopenia Status: Acute (4) Urinary tract infection Status: Acute Qualifiers: Urinary tract infection type: acute cystitis Hematuria presence: with hematuria Qualified Codes: N30.01 - Acute cystitis with hematuria (5) Atrial fibrillation Status: Chronic Qualifiers: Atrial fibrillation type: paroxysmal Qualified Codes: I48.0 - Paroxysmal atrial fibrillation (6) Transaminitis Status: Acute (7) Elevated INR Status: Acute (8) Rheumatoid arthritis Status: Acute Qualifiers: Rheumatoid arthritis location: multiple sites Rheumatoid factor presence: unspecified presence Qualified Codes: M06.9 - Rheumatoid arthritis, unspecified (9) Histoplasmosis Status: Chronic Assessment & Plan: checking CT chest (10) Immunosuppressed status Status: Chronic Clinical Quality Measures DVT/VTE Risk/Contraindication: Risk Factor Score Per Nursin RFS Level Per Nursing on Admit: 4+=Very High CHAPO RIVERA DO Nov 22, 2017 09:55
--- NOTE | 2017-11-22 11:39 | Diagnostic Imaging Report ---
PROCEDURE: CT head with and without contrast. TECHNIQUE: Multiple contiguous axial images were obtained through the brain before and after the administration of intravenous contrast. INDICATION: Lethargy. Comparison is made with prior CT from 07/16/2014. FINDINGS: Ventricles and sulci are consistent with patient's age. Moderate periventricular hypodensity is noted consistent with senescent change. No sulcal effacement, midline shift or hemorrhage is detected. Cisterns are patent. Postcontrast images are without abnormal enhancement. IMPRESSION: Senescent change. No acute intracranial process is detected. Dictated by: Dictated on workstation # [id number]
--- NOTE | 2017-11-22 11:41 | Diagnostic Imaging Report ---
PROCEDURE: CT chest with contrast only. TECHNIQUE: Multiple contiguous axial images were obtained through the chest after administration of intravenous contrast. INDICATION: Sepsis. Comparison is made with prior CT chest from 06/20/2014. No axillary, hilar or mediastinal lymphadenopathy is detected. No pericardial fluid is seen. Patient has a pectus excavating deformity. There are small to moderate bilateral pleural effusions. Areas of subjacent consolidation/atelectasis bilateral lower lobes are also seen. Patchy groundglass infiltrates are identified bilateral upper lobes. No discrete mass is seen. Marked interstitial nodular appearance to the lungs seen on the examination from June 2014 has significantly improved. There is mild residual interstitial changes noted in both lungs. Upper abdomen is unremarkable. IMPRESSION: 1. Development of bilateral pleural effusions with bibasilar consolidation. Interstitial nodular parenchymal pattern noted in 2013 has largely improved. Mild residual interstitial changes remain. There is also patchy groundglass infiltrates bilateral upper lobes. Dictated by: Dictated on workstation # [id number]
[2017-11-22] MEDS ORDERED: TROUGH ORDER-PHARMACY XX NR (12:00)
[2017-11-22] MEDS: VANCOMYCIN 750 MG/NS 250 ML IVPB IV SCH ×2 (15:31)
[2017-11-22] MEDS: FLUCONAZOLE 200 MG/100 ML 50 ML, SYRINGE-IVPB 1 SYRINGE IV SCH ×2 (15:32)
[2017-11-23] VITALS (23 sets, daily range): BP systolic 104–168; BP diastolic 66–110
[2017-11-23] MEDS ORDERED: VANCOMYCIN 1 GM/NS 250 ML IVPB IV SCH ×2 (01:00)
[2017-11-23 04:23] LABS: BASOPHILS % (AUTO) 0 % (0-10); EOSINOPHILS % (AUTO) 0 % (0-10); HEMATOCRIT 30 % (35-52); HEMOGLOBIN 10.3 G/DL (11.5-16.0); LYMPHOCYTES % (AUTO) 15 % (12-44); MEAN CORPUSCULAR HEMOGLOBIN 31 PG (25-34); MEAN CORPUSCULAR HGB CONC 34 G/DL (32-36); MEAN CORPUSCULAR VOLUME 91 FL (80-99); MEAN PLATELET VOLUME 11.5 FL (7.4-10.4); MONOCYTES # (AUTO) 0.3 X 10^3 (0.0-1.0); MONOCYTES % (AUTO) 4 % (0-12); NEUTROPHILS # (AUTO) 5.2 X 10^3 (1.8-7.8); NEUTROPHILS % (AUTO) 80 % (42-75); PLATELET COUNT 56 10^3/uL (130-400); RED BLOOD COUNT 3.29 10^6/uL (4.35-5.85); RED CELL DISTRIBUTION WIDTH 15.7 % (10.0-14.5); WHITE BLOOD COUNT 6.4 10^3/uL (4.3-11.0)
[2017-11-23 04:43] LABS: ALANINE AMINOTRANSFERASE 103 U/L (0-55); ALBUMIN 2.4 GM/DL (3.2-4.5); ALKALINE PHOSPHATASE 125 U/L (40-136); BILIRUBIN,TOTAL 1.5 MG/DL (0.1-1.0); BUN/CREATININE RATIO 18; CALCIUM 6.9 MG/DL (8.5-10.1); CARBON DIOXIDE 19 MMOL/L (21-32); CHLORIDE 107 MMOL/L (98-107); GFR ESTIMATED > 60; GLUCOSE 119 MG/DL (70-105); PHOSPHORUS 1.1 MG/DL (2.3-4.7); POTASSIUM 3.8 MMOL/L (3.6-5.0); SODIUM 134 MMOL/L (135-145); TOTAL PROTEIN 3.8 GM/DL (6.4-8.2)
[2017-11-23] MEDS ORDERED: POT PHOS/NA PHOS (K-PHOS NEUTRAL) PO ONE (05:15)
[2017-11-23] MEDS ORDERED: SODIUM PHOSPHATE INJ 30 MM in NS (IVPB) 250 ML IV ONE (05:15)
--- NOTE | 2017-11-23 05:22 | Pulmonary Progress Note ---
Subjective Time Seen by Provider: 05:24 Subjective/Events-last exam Pt was more alert as the day progressed yesterday. Focused Exam Lactate Level 11/20/17 08:30: Lactic Acid Level 2.95*H 11/20/17 10:49: Lactic Acid Level 1.67 Time of Focused Exam: 12:00 Exam Exam Vital Signs Date Time Temp Pulse Resp B/P (MAP) Pulse Ox O2 Delivery O2 Flow Rate FiO2 11/23/17 04:00 86 26 138/80 (99) 97 Nasal Cannula 2.00 11/23/17 04:00 94 Room Air 11/23/17 04:00 97.7 11/23/17 03:00 85 25 121/67 (85) 96 Nasal Cannula 2.00 11/23/17 02:00 89 34 142/66 (91) 95 Nasal Cannula 2.00 11/23/17 01:00 84 11/23/17 01:00 84 29 162/98 (119) 95 Nasal Cannula 2.00 11/23/17 00:00 94 Room Air 11/23/17 00:00 98.7 11/23/17 00:00 85 31 161/86 (111) 95 Nasal Cannula 2.00 11/22/17 23:00 93 31 152/97 (115) 95 Nasal Cannula 2.00 11/22/17 22:00 87 29 149/88 (108) 95 Nasal Cannula 2.00 11/22/17 21:00 82 28 150/82 (104) 94 Nasal Cannula 2.00 11/22/17 20:00 93 Room Air 11/22/17 20:00 97.8 11/22/17 20:00 81 27 163/80 (107) 95 Nasal Cannula 2.00 11/22/17 19:00 85 31 145/82 (103) 94 Nasal Cannula 2.00 11/22/17 19:00 85 11/22/17 18:40 94 Nasal Cannula 2.00 11/22/17 18:00 91 35 154/85 (108) 95 Nasal Cannula 2.00 11/22/17 17:00 82 30 162/86 (111) 97 Nasal Cannula 2.00 11/22/17 16:00 73 26 116/83 (94) 96 Nasal Cannula 2.00 11/22/17 16:00 93 Room Air 11/22/17 15:00 72 34 145/74 (97) 95 Nasal Cannula 2.00 11/22/17 14:00 73 39 141/68 (92) 95 Nasal Cannula 2.00 11/22/17 13:00 79 11/22/17 13:00 85 37 114/62 (79) 93 Nasal Cannula 2.00 11/22/17 12:00 93 Room Air 11/22/17 12:00 88 28 123/67 (85) 94 Nasal Cannula 2.00 11/22/17 11:00 79 29 117/75 (89) 94 Nasal Cannula 2.00 11/22/17 10:00 93 Nasal Cannula 2.00 11/22/17 10:00 77 24 85/45 (58) 92 Nasal Cannula 2.00 11/22/17 09:00 98 28 89/50 (63) 93 Nasal Cannula 2.00 11/22/17 08:00 93 Room Air 11/22/17 08:00 89 27 107/55 (72) 95 Nasal Cannula 2.00 11/22/17 07:00 102.0 98 30 133/76 (95) 95 Nasal Cannula 2.00 11/22/17 07:00 88 11/22/17 06:00 93 30 128/66 (86) 98 Room Air I & O 11/23/17 07:00 Intake Total 2150 ml Output Total 3300 ml Balance -1150 ml General Appearance: No Apparent Distress, WD/WN, Chronically ill, Thin HEENT: Other ([place] severe even with aides in place) Neck: Normal Inspection, Non Tender Respiratory: Normal Breath Sounds, Decreased Breath Sounds (in bases) Cardiovascular: Irregularly Irregular, Tachycardia Capillary Refill: Less Than 3 Seconds Peripheral Pulses: 2+ Dorsalis Pedis (R), 2+ Left Dors-Pedis (L) Extremity: Normal Capillary Refill, No Calf Tenderness, Other (deformities of bilateral feet consistent with severe RA) Neurologic/Psychiatric: Alert, 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 Norm as Tested, Depressed Affect Skin: Normal Color, Warm/Dry Lymphatic: No Adenopathy Results Lab Laboratory Tests 11/22/17 04:15 11/23/17 04:15 Assessment/Plan Assessment/Plan Severe sepsis - with medication induced immunocompromise -Matias cultures reviewed -D/C vanco - MRSA screen is negative -Zosyn -Diflucan UTI Afib - now controlled -Cardiology consulted Electrolyte abnormality -replace Elevated LFTs with metabolic encephalopathy -Check ammonia level -ABG -Accu check -solumedrol 40 IV Q6 - pt takes chronic prednisone at home 10mg daily Thrombocytopenia - probably secondary to medications -Check peripheral smear and DIC workup -monitor DVT/GI ppx -No Lovenox secondary to platelets -Protonix -Pt refusing SCDs -increase activity Deconditioning -consult PT/OT 233 Will make pt ICU step down but will leave in this unit for another day. LIDYA BACH DO Nov 23, 2017 05:22
[2017-11-23 05:32] LABS: ABSOLUTE RETIC # 25 10e9/L (24-90); RETICULOCYTE % 0.74 % (0.50-2.40)
[2017-11-23] MEDS: D5 1/2 NS W/KCL 20 MEQ/L 1,000 ML IV SCH (06:23)
[2017-11-23] MEDS: methylPREDNISolone 40 MG/ML (Solu-MEDROL) VIAL IV SCH ×3 (06:26→17:42)
[2017-11-23] MEDS: KCL 20 MEQ TAB (K-DUR) PO SCH (06:35)
[2017-11-23] MEDS: POTASSIUM CL 10MEQ/50ML IVPB 50 ML IV SCH (06:36)
[2017-11-23] MEDS: MAGNESIUM 1 GM/100 ML IVPB 100 ML IV SCH (06:36)
[2017-11-23] MEDS: PANTOPRAZOLE 40 MG (PROTONIX) TAB PO SCH (06:45)
[2017-11-23 06:57] LABS: INR 1.3 (0.8-1.4); PROTHROMBIN TIME PATIENT 15.8 SEC (12.2-14.7)
[2017-11-23 07:11] LABS: FIBRIN DEGRADATION PRODUCTS 18.83 UG/ML (0.00-0.49)
[2017-11-23 07:12] LABS: BAND NEUTROPHILS 13 %; BASOPHILS % (MANUAL) 0 %; EOSINOPHILS % (MANUAL) 0 %; LYMPHOCYTES % (MANUAL) 10 %; MONOCYTES % (MANUAL) 0 %; NEUTROPHILS % (MANUAL) 77 %; RBC MORPH NORMAL
--- NOTE | 2017-11-23 08:01 | Cardiology Progress Note ---
Subjective Date Seen by Provider: Nov 23, 2017 Time Seen by Provider: 07:56 Subjective/Events-last exam Patient is more alert today, responding appropriately, still lethargic. Denied any chest pain, still complaining of cough Review of Systems General: No Chills, No Night Sweats, No Fatigue, No Malaise, No Appetite, No Other HEENT: No Head Aches, No Visual Changes, No Eye Pain, No Ear Pain, No Dysphasia , No Sinus Congestion, No Post Nasal Drip, No Sore Throat, No Other Pulmonary: Dyspnea, Cough; No Pleuritic Chest Pain, No Other Cardiovascular: No: Chest Pain, Palpitations, Orthopnea, Paroxysmal Noc. Dyspnea, Edema, Lt Headedness, Other Focused Exam Lactate Level 11/20/17 08:30: Lactic Acid Level 2.95*H 11/20/17 10:49: Lactic Acid Level 1.67 11/23/17 06:30: Lactic Acid Level 3.58*H Time of Focused Exam: 12:00 Lactic Acid Level Laboratory Tests Test 11/23/17 06:30 Lactic Acid Level 3.58 MMOL/L (0.50-2.00) *H Objective-Cardiology Exam Last Set of Vital Signs Vital Signs 11/20/17 11/23/17 11/23/17 14:04 04:00 06:00 Temp 97.7 Pulse 87 Resp 28 B/P (MAP) 150/81 (104) Pulse Ox 95 O2 Delivery Nasal Cannula O2 Flow Rate 2.00 FiO2 93 Capillary Refill : Less Than 3 Seconds I&O Intake and Output 11/23/17 00:00 Intake Total 3300 ml Output Total 3600 ml Balance -300 ml IV Total 3300 ml Output Urine Total 3600 ml General: Alert, Oriented X3, Cooperative, Moderate Distress HEENT: Atraumatic, PERRLA, EOMI Neck: Supple, No JVD Lungs: Other (Bilateral rhonchi) Heart: Regular Rate, Normal S1, Normal S2, Other (Systolic murmur) Abdomen: Normal Bowel Sounds, Soft, No Tenderness Extremities: No Clubbing, No Cyanosis Skin: No Rashes, No Breakdown Neuro: Normal Speech, Sensation Intact Psych/Mental Status: Mental Status NL, Mood NL Results Lab Laboratory Tests 11/23/17 04:15 A/P-Cardiology Admission Diagnosis Severe sepsis Proximal atrial fibrillation Hypertension Elevated liver enzymes Assessment/Plan Severe sepsis with septic shock, improving, improvement compared to yesterday. Receiving antibiotic. Immunocompromise secondary to medication. Paroxysmal atrial fibrillation. On Xarelto and metoprolol, she is in sinus rhythm at this time, thrombocytopenia, anticoagulation are on hold Elevated liver enzymes, ultrasound is negative. Supratherapeutic INR. Likely due to severe sepsis. Patient was on Xarelto. Currently off anticoagulation Hypertension, patient has been on Toprol-XL 50 mg daily, I will restart medication once she is more stable History of mild carotid stenosis, ultrasound was done in March 2016 Rheumatoid arthritis. On methotrexate and prednisone. High risk for DVT, unable to tolerate anticoagulation due to thrombocytopenia, refusing SCD Complicated patient with multiple medical issues. Clinical Quality Measures DVT/VTE Risk/Contraindication: Risk Factor Score Per Nursin RFS Level Per Nursing on Admit: 4+=Very High CHELI OLSEN MD Nov 23, 2017 08:01
[2017-11-23] MEDS: NS IV 1000 ML 1,000 ML IV SCH ×3 (08:26→20:35)
--- NOTE | 2017-11-23 08:36 | Diagnostic Imaging Report ---
INDICATION: Dyspnea. COMPARISON: 11/22/2017. FINDINGS: The right IJ catheter tip overlies the cavoatrial junction. Five lobed interstitial opacities and perihilar groundglass disease are present. The perihilar opacities have progressed, particularly on the right. While there is chronic lung disease present, the changes themselves are suspect for pneumonia versus edema. There does appear to be a small right pleural effusion. The heart size is at the upper limits of normal but stable. No pneumothorax. IMPRESSION: While there are chronic changes present, the perihilar and medial right basilar opacity has progressed with the change itself being edema versus pneumonia. There are likely small pleural effusions with stable support apparatus. No pneumothorax. Dictated by: Dictated on workstation # [id number]
[2017-11-23] MEDS: LACTULOSE SYRUP 10GM/15ML (ENULOSE) 30ML UDC PO SCH ×3 (09:09→20:46)
[2017-11-23] MEDS: PIPERACILLIN SODIUM/TAZOBACTAM 4.5 GM in NS (IVPB) 100 ML IV SCH (09:09)
[2017-11-23] MEDS: APAP 325 MG/10.15 ML LIQ (TYLENOL) UDC PO PRN ×2 (09:09→15:28)
--- NOTE | 2017-11-23 09:41 | Progress Note-Hospitalist ---
Subjective HPI/CC On Admission Date Seen by Provider: Nov 23, 2017 Time Seen by Provider: 09:00 Pt is an 82yoCF with a PMH of RA on multiple immunsuppressants and a-fib who presented to the ER due to fever and confusion and was admitted for septic shock. Subjective/Events-last exam Patient continues to be critically ill and lactic acid is actually rising even though IV fluids were given so giving more fluids but I suspect poor perfusion from end-stage process as the cause of the lactic acidosis. She remains a full code which is concerning because there would be no possibility of recovery in this patient since she is so fragile and advanced age with severe comorbidities and worsening organ failure but will maintain the course currently and will monitor closely for any decline Platelet count continues to go down so vancomycin was discontinued and patient on Zosyn and antifungal treatment No source of fever which was 101 this morning Platelets noted no bleeding Zosyn tolerated Pt breathless when talking to me Very fragile status Review of Systems General: Malaise Cardiovascular: Orthopnea Neurological: Weakness Focused Exam Lactate Level 11/20/17 10:49: Lactic Acid Level 1.67 11/23/17 06:30: Lactic Acid Level 3.58*H 11/23/17 08:54: Lactic Acid Level 4.00*H Time of Focused Exam: 12:00 Lactic Acid Level Laboratory Tests Test 11/23/17 06:30 11/23/17 08:54 Lactic Acid Level 3.58 MMOL/L (0.50-2.00) *H 4.00 MMOL/L (0.50-2.00) *H Objective Exam Vital Signs Vital Signs Date Time Temp Pulse Resp B/P (MAP) Pulse Ox O2 Delivery O2 Flow Rate FiO2 11/23/17 09:09 101.1 11/23/17 08:35 Nasal Cannula 2.00 11/23/17 06:00 87 28 150/81 (104) 95 11/20/17 14:04 93 Capillary Refill : Less Than 3 Seconds General Appearance: No Apparent Distress, WD/WN, Chronically ill, Other ( fragile, declined chronically) Neck: Normal Inspection, Non Tender Respiratory: Lungs Clear, Normal Breath Sounds, Decreased Breath Sounds Cardiovascular: Tachycardia Neurologic/Psychiatric: Alert, Oriented x3, No Motor/Sensory Deficits, 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 Imaging: Reviewed Imaging Films, Reviewed Imaging Report Assessment/Plan Assessment and Plan Assess & Plan/Chief Complaint Assessment: Septic shock on immunosuppressives Plan: IVF to continue Empiric abx with Zosyn stop Vanc due to low platelets Appreciate Cardiology and Pulmonology consultations Monitor closely Poor prognosis Diagnosis/Problems Diagnosis/Problems (1) Septic shock Status: Acute Assessment & Plan: Lactic acid continues to elevate regardless of IVF (2) Altered mental status Status: Acute Assessment & Plan: 11/23/17: Improved Qualifiers: Altered mental status type: delirium Qualified Codes: R41.0 - Disorientation, unspecified (3) Thrombocytopenia Status: Acute Assessment & Plan: 11/23: Worsened (4) Urinary tract infection Status: Acute Qualifiers: Urinary tract infection type: acute cystitis Hematuria presence: with hematuria Qualified Codes: N30.01 - Acute cystitis with hematuria (5) Atrial fibrillation Status: Chronic Qualifiers: Atrial fibrillation type: paroxysmal Qualified Codes: I48.0 - Paroxysmal atrial fibrillation (6) Transaminitis Status: Acute (7) Elevated INR Status: Acute (8) Rheumatoid arthritis Status: Acute Qualifiers: Rheumatoid arthritis location: multiple sites Rheumatoid factor presence: unspecified presence Qualified Codes: M06.9 - Rheumatoid arthritis, unspecified (9) Histoplasmosis Status: Chronic Assessment & Plan: checking CT chest (10) Immunosuppressed status Status: Chronic (11) End stage management Status: Acute Assessment & Plan: Need DNR since prognosis is very poor and patient not responding to management Clinical Quality Measures DVT/VTE Risk/Contraindication: Risk Factor Score Per Nursin RFS Level Per Nursing on Admit: 4+=Very High CHAPO RIVERA DO Nov 23, 2017 09:41
[2017-11-23] MEDS ORDERED: LACTATED RINGERS 1,000 ML IV ONE ×2 (09:45→16:00)
--- NOTE | 2017-11-23 09:52 | Physical Therapy Evaluation ---
PT Evaluation-General Medical Diagnosis Admission Date Nov 20, 2017 at 10:18 Medical Diagnosis: severe sepsis Onset Date: Nov 20, 2017 Therapy Diagnosis Therapy Diagnosis: severe weakness/debility Height/Weight Height (Feet): 5 Height (Inches): 1.00 Weight (Pounds): 142 Weight (Ounces): 0.0 Precautions Precautions/Isolations: Fall Prevention, Standard Precautions Weight Bear Status Right Lower Extremity: Right Full Weight Bearing Left Lower Extremity: Left Full Weight Bearing Referral Physician: Joslyn Reason for Referral: Evaluation/Treatment Medical History Pertinent Medical History: Arthritis, HTN, Rheumatoid Arthritis Additional Medical History severe RA Current History ED with fever and chills Reviewed History: Yes Social History Home: Single Level Prior/Core FIM Prior Level of Function Functional [place] Measure 0=Not Assessed/NA 4=Minimal Assistance 1=Total Assistance 5=Supervision or Setup 2=Maximal Assistance 6=Modified [place] 3=Moderate Assistance 7=Complete [place] Bed Mobility: 6 Transfers (B,C,W/C) (FIM): 6 Gait: 2 (ambulates short distance with FWW) PT Evaluation-Current Subjective Patient is very lethargic and incontinent BM. Pain Numeric Pain Scale: 5-Moderate Pain Location: Joint Location Body Site: Generalized Pain Description: Chronic Objective Patient Orientation: Listless Problem Solving: Poor Attachments: Oxygen, Reese Catheter, IV ROM/Strength ROM Lower Extremities decreased ROM bilateral LE due to RA Strength Lower Extremities 2-/5 grossly bilaterally Integumentary/Posture Integumentary refer to nursing notes Bowel Incontinence: Yes Bladder Incontinence: Reese Cath Neuromuscular (Tone, Coordination, Reflexes) severely diminished with all Sensory Vision: Wears Glasses Hearing: Impaired Sensation Right Lower Extremit: Intact Sensation Left Lower Extremity: Intact Transfers Functional [place] Measure 0=Not Assessed/NA 4=Minimal Assistance 1=Total Assistance 5=Supervision or Setup 2=Maximal Assistance 6=Modified [place] 3=Moderate Assistance 7=Complete [place] Transfers (B, C, W/C) (FIM): 1 Scootin Rollin dependent with all. Patient is not safe for OOB activities at this time. Gait Mode of Locomotion: Walk Anticipated Mode of Locomotion: Both Assessment/Needs 82 y.o. female, will benefit from skilled PT to address functional strength and mobility to improve current LOF. Patient is severely debilitated and unable to tolerate intense therapy at this time. PT will gradually increase activity with patient as patient's medial status improves. Rehab Potential: Guarded PT [employer] Goals Penitentiary Goals PT Penitentiary Goals Time Frame: December 17, 2017 Transfers (B,C,W/C) (FIM): 3 Gait (FIM): 1 Gait distance (FIM): 1=up to 49 ft Distance: 15' Gait Level of Assist: 3 Gait Assistive Device: FWW PT Plan Problem List Problem List: Activity Tolerance, Functional Strength, Safety, Balance, Gait, Transfer, Bed Mobility, ROM Treatment/Plan Treatment Plan: Continue Plan of Care Treatment Plan: Bed Mobility, Education, Functional Activity [place], Functional Strength, Gait, Safety, Therapeutic Exercise, Transfers Treatment Duration: December 17, 2017 Frequency: 5 times per week (will increase to 6/wk when medically stable) Estimated Hrs Per Day: .25 hour per day Patient and/or Family Agrees t: Yes Time/GCodes Time In: 815 Time Out: 845 Total Billed Treatment Time: 30 Total Billed Treatment 1 visit EVModC 15 min FA 15 min JESUS YATES PT Nov 23, 2017 09:52
[2017-11-23] MEDS ORDERED: RT-ALBUTEROL/IPRATROPIUM 3 ML (DUONEB) VIAL INH PRN (13:00)
--- NOTE | 2017-11-23 13:03 | Occupational Therapy Eval ---
OT Evaluation-General/PLF Medical Diagnosis Admission Date Nov 20, 2017 at 10:18 Medical Diagnosis: severe sepsis Onset Date: Nov 20, 2017 Therapy Diagnosis Therapy Diagnosis: Weakness Height/Weight Height (Feet): 5 Height (Inches): 1.00 Weight (Pounds): 142 Weight (Ounces): 0.0 Precautions Precautions/Isolations: Fall Prevention, Standard Precautions Safety Interventions: Reorient-PRN Weight Bear Status Weight Bearing Restriction: Weight Bearing/Tolerated Referral Physician: Joslyn Referral Reason: Activity Tolerance, Self Care, Evaluation/Treatment, Strengthening/ROM Medical History Pertinent Medical History: Atrial Fib, Arthritis, HTN, Rheumatoid Arthritis Additional Medical History Confusion Current History Pt brought to ER due to confusion. Reviewed History: Yes Social History Home: Single Level Current Living Status: Spouse Entry Into Home: Level Entry ADL-Prior Level of Function ADL PLOF Comments Pt. states that she was independent with bathing but required assist to dress from spouse. DME/Equipment: Shower DME/Equipment Comments Pt. states that she has a walker, but does not use it. OT Current Status Subjective Pt. does not report pain, but does have difficulty at times reporting history. Appearance Pt. in bed asleep. Does wake up when OT enters room. Multiple lines in place. Mental Status/Objective Patient Orientation: Unable to Assess Attachments: Reese Catheter, IV, Oxygen Current Glasses/Contacts: Yes Upper Extremity ROM Pt is unable to fully range bilateral shoulders. Pt. able to flex shoulders to approximately 45 degrees. However, pt. is groggy and this may also be due to multiple tubes and lines. Pt. has significant RA in bilateral hands. Pt. is unable to fully follow cues to open and close hands. ADL-Treatment Functional [place] Measure 0=Not Assessed/NA 4=Minimal Assistance 1=Total Assistance 5=Supervision or Setup 2=Maximal Assistance 6=Modified [place] 3=Moderate Assistance 7=Complete IndependenceIRFPAI Quality Coding Scale 6 Independent with activity with or without an assistive device 5 Patient requires set up or clean up by helper. Patient completes activity by themselves 4 Supervision or touching assist (CGA). [place] provide cues , steadying assist 3 The helper provides less than half the effort to complete the activity 2 The helper provides more than half the effort to complete the activity 1 Dependent. The helper does all the effort to complete an activity 7 Patient refused to complete or attempt activity 9 The patient did not perform the activity before the current illness or injury 88 Not attempted due to Medical conditions or safety concerns Transfers (B, C, W/C) (FIM): 1 (Dependent to roll self in bed.) Other Treatments Pt. sleeping. Does wake up and has difficulty stating history. Pt. in and out of sleep. Pt. declines transferring at this time, but does request for OT to reposition her. Pt. has difficulty rolling side to side and requires dependent assist to roll for OT to reposition her. Education OT Patient Education: Correct positioning, Progress toward Goal/Update tx plan , Purpose of tx/functional activities, Reviewed precautions, Rehab process Teaching Recipient: Patient Teaching Methods: Discussion Response to Teaching: Verbalize Understanding OT Short Term Goals Short Term Goals Time Frame: December 07, 2017 Eating(FIM): 5 Grooming(FIM): 5 Bathing(FIM): 3 Upper Body Dressing(FIM): 4 Lower Body Dressing(FIM): 3 Toileting(FIM): 3 Transfers (B,C,W/C) (FIM): 4 Toilet/Commode Transfer(FIM): 4 Shower Transfer(FIM): 3 Additional Short Term Goals: 1-Demonstrate ADL Tasks, 2-Verbalize Understanding , 3-ImproveStrength/[place] 1=Demonstrate adherence to instructed precautions during ADL tasks. 2=Patient will verbalize/demonstrate understanding of assistive devices/ modifications for ADL. 3=Patient will improve strength/tolerance for activity to enable patient to perform ADL's. OT Skilled Nursing Goals Power Press Supervisor Goals Time Frame: December 21, 2017 Eating (FIM): 6 Grooming(FIM): 6 Bathing(FIM): 4 Upper Body Dressing(FIM): 5 Lower Body Dressing(FIM): 5 Toileting(FIM): 6 Transfers (B,C,W/C) (FIM): 6 Toilet/Commode Transfer(FIM): 6 Shower Transfer(FIM): 4 Additional Goals: 1-Demonstrate ADL Tasks, 2-Verbalize Understanding, 3- ImproveStrength/[place] 1=Demonstrate adherence to instructed precautions during ADL tasks. 2=Patient will verbalize/demonstrate understanding of assistive devices/ modifications for ADL. 3=Patient will improve strength/tolerance for activity to enable patient to perform ADL's. OT Education/Plan Problem List/Assessment Assessment: Decreased Activ Tolerance, Decreased UE Strength, Dependent Transfers, Impaired Bed Mobility, Impaired Coordination, Impaired Funct Balance , Impaired I ADL's, Impaired Self-Care Skills, Restricted Funct UE ROM Discharge Recommendations Plan/Recommendations: Continue POC Therapy D/C Recommendations: 24 hr Supervision Target Placement Home with family support. Treatment Plan/Plan of Care Treatment,Training & Education: Yes Patient would benefit from OT for education, treatment and training to promote independence in ADL's, mobility, safety and/or upper extremity function for ADL' s. Plan of Care: ADL Retraining, Caregiver Training, Functional Mobility, UE Funct Exercise/Act Treatment Duration: December 21, 2017 Frequency: 5 times per week Estimated Hrs Per Day: .25 hour per day Agreement: Yes Rehab Potential: Fair Time/GCodes Start Time: 10:35 Stop Time: 10:47 Total Time Billed (hr/min): 12 Billed Treatment Time 1, VI SNELL OT Nov 23, 2017 13:03
[2017-11-23] MEDS: RT-ALBUTEROL/IPRATROPIUM 3 ML (DUONEB) VIAL INH SCH ×3 (14:17→20:38)
[2017-11-23] MEDS: FLUCONAZOLE 200 MG/100 ML 50 ML, SYRINGE-IVPB 1 SYRINGE IV SCH ×2 (14:52)
[2017-11-23] MEDS ORDERED: VANCOMYCIN INJECTION 0.1 MG in NS (IVPB) 250 ML IV SCH (16:15)
[2017-11-23] MEDS: ANIDULAFUNGIN INJECTION 100 MG in NS (IVPB) 100 ML IV SCH (17:42)
[2017-11-23] MEDS: MEROPENEM 500 MG in NS (IVPB) 100 ML IV SCH (17:42)
[2017-11-23] MEDS: VANCOMYCIN 1 GM/NS 250 ML IVPB IV SCH ×2 (18:06)
[2017-11-23 18:13] LABS: BILIRUBIN,URINE NEGATIVE (NEGATIVE); CLARITY,URINE CLEAR; COLOR,URINE YELLOW; GLUCOSE, URINE (UA) NEGATIVE (NEGATIVE); KETONES,URINE NEGATIVE (NEGATIVE); LEUKOCYTE ESTERASE ,URINE NEGATIVE (NEGATIVE); NITRITE,URINE NEGATIVE (NEGATIVE); PH,URINE 6 (5-9); PROTEIN,URINE 3+ (NEGATIVE); UROBILINOGEN,URINE 1 MG/DL (NORMAL)
[2017-11-23 18:22] LABS: BACTERIA,URINE FEW /HPF; WBC,URINE 0-2 /HPF
[2017-11-23 18:23] LABS: AMORPHOUS SEDIMENT,UR FEW AMOR URATES /LPF
[2017-11-23] MEDS ORDERED: LACTATED RINGERS 500 ML IV ONE (19:30)
[2017-11-23 19:57] LABS: BASOPHILS % (AUTO) 0 % (0-10); EOSINOPHILS % (AUTO) 0 % (0-10); HEMATOCRIT 25 % (35-52); HEMOGLOBIN 8.6 G/DL (11.5-16.0); LYMPHOCYTES # (AUTO) 0.6 X 10^3 (1.0-4.0); LYMPHOCYTES % (AUTO) 11 % (12-44); MEAN CORPUSCULAR HEMOGLOBIN 31 PG (25-34); MEAN CORPUSCULAR HGB CONC 34 G/DL (32-36); MEAN CORPUSCULAR VOLUME 91 FL (80-99); MEAN PLATELET VOLUME 12.3 FL (7.4-10.4); MONOCYTES # (AUTO) 0.1 X 10^3 (0.0-1.0); MONOCYTES % (AUTO) 3 % (0-12); NEUTROPHILS # (AUTO) 4.3 X 10^3 (1.8-7.8); NEUTROPHILS % (AUTO) 86 % (42-75); PLATELET COUNT 66 10^3/uL (130-400); RED BLOOD COUNT 2.78 10^6/uL (4.35-5.85); RED CELL DISTRIBUTION WIDTH 15.8 % (10.0-14.5)
[2017-11-23 20:11] LABS: ALANINE AMINOTRANSFERASE 101 U/L (0-55); ALBUMIN 2.1 GM/DL (3.2-4.5); ALKALINE PHOSPHATASE 139 U/L (40-136); BILIRUBIN,TOTAL 1.7 MG/DL (0.1-1.0); BUN/CREATININE RATIO 22; CALCIUM 6.5 MG/DL (8.5-10.1); CARBON DIOXIDE 20 MMOL/L (21-32); CHLORIDE 109 MMOL/L (98-107); GFR ESTIMATED > 60; GLUCOSE 119 MG/DL (70-105); POTASSIUM 3.5 MMOL/L (3.6-5.0); SODIUM 136 MMOL/L (135-145); TOTAL PROTEIN 3.5 GM/DL (6.4-8.2)
[2017-11-23] MEDS: IBUPROFEN SUSP 100MG/5ML (MOTRIN) UDC PO PRN (20:46)
[2017-11-23] MEDS ORDERED: MEROPENEM 1,000 MG in NS (IVPB) 100 ML IV SCH (22:00)
[2017-11-24] VITALS (24 sets, daily range): BP systolic 99–156; BP diastolic 58–108
[2017-11-24] MEDS: methylPREDNISolone 40 MG/ML (Solu-MEDROL) VIAL IV SCH ×4 (00:09→18:18)
[2017-11-24] MEDS: MEROPENEM 500 MG in NS (IVPB) 100 ML IV SCH ×3 (00:13→17:14)
[2017-11-24] MEDS: NS IV 1000 ML 1,000 ML IV SCH ×3 (00:50→16:32)
[2017-11-24] MEDS ORDERED: AMIODARONE IV SOLUTION 200 ML IV ONE (03:06)
[2017-11-24] MEDS ORDERED: AMIODARONE 150 MG/3 ML (CORDARONE) AMP IV ONE (03:06)
[2017-11-24] MEDS ORDERED: NS (IVPB) 0 ML ONE (03:08)
[2017-11-24 03:36] LABS: BASOPHILS % (AUTO) 0 % (0-10); EOSINOPHILS % (AUTO) 1 % (0-10); HEMATOCRIT 27 % (35-52); HEMOGLOBIN 9.2 G/DL (11.5-16.0); LYMPHOCYTES # (AUTO) 0.5 X 10^3 (1.0-4.0); LYMPHOCYTES % (AUTO) 10 % (12-44); MEAN CORPUSCULAR HEMOGLOBIN 31 PG (25-34); MEAN CORPUSCULAR HGB CONC 34 G/DL (32-36); MEAN CORPUSCULAR VOLUME 91 FL (80-99); MONOCYTES # (AUTO) 0.1 X 10^3 (0.0-1.0); MONOCYTES % (AUTO) 2 % (0-12); NEUTROPHILS # (AUTO) 3.8 X 10^3 (1.8-7.8); NEUTROPHILS % (AUTO) 87 % (42-75); PLATELET COUNT 59 10^3/uL (130-400); RED BLOOD COUNT 2.97 10^6/uL (4.35-5.85); RED CELL DISTRIBUTION WIDTH 15.7 % (10.0-14.5); WHITE BLOOD COUNT 4.4 10^3/uL (4.3-11.0)
[2017-11-24] MEDS ORDERED: [UNRECOGNIZED DRUG - OTHER] IV ONE ×2 (03:45)
[2017-11-24] MEDS ORDERED: D5W IV ONE ×2 (03:45)
[2017-11-24 04:00] LABS: ALANINE AMINOTRANSFERASE 125 U/L (0-55); ALBUMIN 2.1 GM/DL (3.2-4.5); ALKALINE PHOSPHATASE 162 U/L (40-136); BILIRUBIN,TOTAL 1.7 MG/DL (0.1-1.0); BUN/CREATININE RATIO 24; CALCIUM 6.7 MG/DL (8.5-10.1); CARBON DIOXIDE 20 MMOL/L (21-32); CHLORIDE 114 MMOL/L (98-107); CREATININE SERUM 0.49 MG/DL (0.60-1.30); GFR ESTIMATED > 60; GLUCOSE 139 MG/DL (70-105); MAGNESIUM 1.8 MG/DL (1.8-2.4); PHOSPHORUS 1.7 MG/DL (2.3-4.7); POTASSIUM 3.4 MMOL/L (3.6-5.0); SODIUM 142 MMOL/L (135-145); TOTAL PROTEIN 3.8 GM/DL (6.4-8.2)
[2017-11-24] MEDS: AMIODARONE 450 MG/D5W 250 ML (EXCEL) IV SCH ×4 (04:04→10:37)
[2017-11-24] MEDS: RT-ALBUTEROL/IPRATROPIUM 3 ML (DUONEB) VIAL INH SCH ×4 (04:43→18:49)
[2017-11-24] MEDS: MAGNESIUM 1 GM/100 ML IVPB 100 ML IV SCH (05:08)
[2017-11-24] MEDS: KCL 20 MEQ TAB (K-DUR) PO SCH (05:08)
[2017-11-24] MEDS: POTASSIUM CL 10MEQ/50ML IVPB 50 ML IV SCH ×4 (05:08→07:53)
[2017-11-24] MEDS: VANCOMYCIN 1 GM/NS 250 ML IVPB IV SCH ×4 (05:20→18:19)
[2017-11-24] MEDS: PANTOPRAZOLE 40 MG (PROTONIX) TAB PO SCH (07:07)
[2017-11-24] MEDS ORDERED: SODIUM PHOSPHATE INJ 30 MM in NS (IVPB) 250 ML IV NR (07:15)
--- NOTE | 2017-11-24 07:44 | Pulmonary Progress Note ---
Subjective Time Seen by Provider: 07:46 Subjective/Events-last exam PT was switched back to ICU status last night secondary to sepsis. Focused Exam Lactate Level 11/23/17 15:15: Lactic Acid Level 3.87*H 11/23/17 18:45: Lactic Acid Level 4.84*H 11/24/17 03:30: Lactic Acid Level 3.48*H Time of Focused Exam: 12:00 Exam Exam Vital Signs Date Time Temp Pulse Resp B/P (MAP) Pulse Ox O2 Delivery O2 Flow Rate FiO2 11/24/17 06:00 118 27 126/90 (102) 99 Nasal Cannula 3.00 11/24/17 05:00 138 28 121/69 (86) 98 Nasal Cannula 3.00 11/24/17 04:00 96 Nasal Cannula 2.00 11/24/17 04:00 135 14 120/81 (94) 97 Nasal Cannula 3.00 11/24/17 03:31 98.3 11/24/17 03:00 156 35 123/86 (98) 98 Nasal Cannula 3.00 11/24/17 02:00 161 36 109/58 (75) 97 Nasal Cannula 3.00 11/24/17 01:00 79 11/24/17 01:00 79 20 138/78 (98) 97 Nasal Cannula 3.00 11/24/17 00:09 99.2 11/24/17 00:00 86 31 137/84 (101) 96 Nasal Cannula 3.00 11/24/17 00:00 96 Nasal Cannula 2.00 11/23/17 23:00 101 21 133/78 (96) 98 Nasal Cannula 3.00 11/23/17 22:00 117 26 111/66 (81) 96 Nasal Cannula 2.00 11/23/17 21:41 99.7 11/23/17 21:00 111 28 137/70 (92) 95 Nasal Cannula 2.00 11/23/17 20:46 100.2 11/23/17 20:42 100.2 11/23/17 20:38 97 Nasal Cannula 2.00 11/23/17 20:00 96 Nasal Cannula 2.00 11/23/17 20:00 98 29 131/77 (95) 96 Nasal Cannula 2.00 11/23/17 19:00 106 11/23/17 19:00 106 28 135/72 (93) 95 Nasal Cannula 2.00 11/23/17 18:00 109 36 148/76 (100) 96 Nasal Cannula 2.00 11/23/17 17:00 92 26 140/75 (96) 96 Nasal Cannula 2.00 11/23/17 16:30 100.1 11/23/17 15:28 100.2 11/23/17 15:20 100.3 Nasal Cannula 2.00 11/23/17 15:20 Nasal Cannula 2.00 11/23/17 15:00 99 37 96 Nasal Cannula 2.00 11/23/17 14:58 96 Nasal Cannula 2.00 11/23/17 14:12 99.7 11/23/17 14:00 96 30 146/88 (107) 97 Nasal Cannula 2.00 11/23/17 13:00 102 28 113/88 (96) 97 Nasal Cannula 2.00 11/23/17 13:00 98 11/23/17 12:15 Nasal Cannula 2.00 11/23/17 12:15 99.9 11/23/17 12:00 97 32 104/92 (96) 96 Nasal Cannula 2.00 11/23/17 11:51 93 96 28 11/23/17 11:42 96 Nasal Cannula 2.00 11/23/17 11:00 89 21 146/89 (108) 96 Nasal Cannula 2.00 11/23/17 10:00 97 29 131/82 (98) 97 Nasal Cannula 2.00 11/23/17 09:09 101.1 11/23/17 09:00 95 33 164/77 (106) 96 Nasal Cannula 2.00 11/23/17 08:35 101.1 Nasal Cannula 2.00 11/23/17 08:30 Nasal Cannula 2.00 11/23/17 08:00 86 23 157/98 (117) 97 Nasal Cannula 2.00 I & O 11/24/17 07:00 Intake Total 5623 ml Output Total 3300 ml Balance 2323 ml General Appearance: WD/WN, Anxious, Chronically ill, Other (fragile, declined chronically) HEENT: Other Neck: Normal Inspection, Non Tender Respiratory: Lungs Clear, Normal Breath Sounds, Decreased Breath Sounds Cardiovascular: Tachycardia Capillary Refill: Less Than 3 Seconds Peripheral Pulses: 2+ Dorsalis Pedis (R), 2+ Left Dors-Pedis (L) Extremity: Normal Capillary Refill, No Calf Tenderness, Other Neurologic/Psychiatric: Alert, Oriented x3, No Motor/Sensory Deficits, 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 Norm as Tested, Depressed Affect Skin: Normal Color, Warm/Dry Lymphatic: No Adenopathy Results Lab Laboratory Tests 11/23/17 04:15 11/23/17 19:45 11/24/17 03:30 Assessment/Plan Assessment/Plan Severe sepsis - with medication induced immunocompromise -Matias cultures reviewed -Continue vanco, merrem Metabolic lactic acidosis -IVF and monitor UTI Afib - now controlled -Cardiology consulted Electrolyte abnormality -replace Elevated LFTs with metabolic encephalopathy -Lactulose -Accu check -solumedrol 40 IV Q6 - pt takes chronic prednisone at home 10mg daily Thrombocytopenia - probably secondary to medications -Check peripheral smear and DIC workup -monitor DVT/GI ppx -No Lovenox secondary to platelets -Protonix -Pt refusing SCDs -increase activity Deconditioning -consult PT/OT I discussed with patients Daughter Jessica over the phone regarding patients condition. Jessica who is a RN at [employer] is going to talk to family about code status. Update I spoke to Patient's and he confirms patient is a DNR. She would never want to be on life support. Time spent with patient, family and medical team is 60min. Critical Care: Critically Ill Patient Time spent with patient (mins): 60 LIDYA BACH DO Nov 24, 2017 07:44
--- NOTE | 2017-11-24 08:09 | Diagnostic Imaging Report ---
INDICATION: Dyspnea. TIME OF EXAM: 3:01 a.m. Correlation is made with prior study from one day earlier. Right IJ line has tip overlying the right atrium. The heart size is stable. Interstitial changes throughout both lungs and noted and similar to prior exam likely owing to congestive failure. No effusion or pneumothorax is seen. IMPRESSION: Continued findings of congestive failure, similar to examination one day earlier. Dictated by: Dictated on workstation # [id number]
--- NOTE | 2017-11-24 09:57 | Cardiology Progress Note ---
Subjective Date Seen by Provider: Nov 24, 2017 Time Seen by Provider: 09:30 Subjective/Events-last exam Patient is sitting up in bed, eating breakfast, no apparent distress at this time. Complaining of fatigue, denies any CP or increased dyspnea. Focused Exam Lactate Level 11/23/17 15:15: Lactic Acid Level 3.87*H 11/23/17 18:45: Lactic Acid Level 4.84*H 11/24/17 03:30: Lactic Acid Level 3.48*H Time of Focused Exam: 12:00 Objective-Cardiology Exam Last Set of Vital Signs Vital Signs 11/23/17 11/24/17 11/24/17 11:51 09:00 09:15 Pulse 84 Resp 28 B/P (MAP) 145/82 (103) Pulse Ox 98 O2 Delivery Nasal Cannula O2 Flow Rate 1.00 FiO2 28 Capillary Refill : Less Than 3 Seconds I&O Intake and Output 11/24/17 00:00 Intake Total 6870 ml Output Total 3250 ml Balance 3620 ml Intake Oral 830 ml IV Total 6040 ml Output Urine Total 3250 ml # Bowel Movements 2 General: Alert, Oriented X3, Cooperative, Moderate Distress HEENT: Atraumatic, PERRLA, EOMI Neck: Supple, No JVD Lungs: Other (Bilateral rhonchi) Heart: Regular Rate, Normal S1, Normal S2, Other (Systolic murmur) Abdomen: Normal Bowel Sounds, Soft, No Tenderness Extremities: No Clubbing, No Cyanosis Skin: No Rashes, No Breakdown Neuro: Normal Speech, Sensation Intact Psych/Mental Status: Mental Status NL, Mood NL Results Lab Laboratory Tests 11/23/17 19:45 11/24/17 03:30 A/P-Cardiology Admission Diagnosis Severe sepsis Proximal atrial fibrillation Hypertension Elevated liver enzymes Assessment/Plan Severe sepsis with septic shock, receiving antibiotic IVF, lactic acid continues to be elevated. Management per Dr. Jorgensen and hospitalist. Immunocompromise secondary to medication. Paroxysmal atrial fibrillation. On Xarelto and metoprolol, she is in sinus rhythm at this time, thrombocytopenia, anticoagulation are on hold Elevated liver enzymes, ultrasound is negative. Supratherapeutic INR. Likely due to severe sepsis. Patient was on Xarelto. Currently off anticoagulation Hypertension, patient has been on Toprol-XL 50 mg daily, I will restart medication once she is more stable History of mild carotid stenosis, ultrasound was done in March 2016 Rheumatoid arthritis. On methotrexate and prednisone. High risk for DVT, unable to tolerate anticoagulation due to thrombocytopenia, refusing SCD Complicated patient with multiple medical issues. Clinical Quality Measures DVT/VTE Risk/Contraindication: Risk Factor Score Per Nursin RFS Level Per Nursing on Admit: 4+=Very High Contraindications-Pharm: Other *list below* Contraindications-Mechi: Other *list below* Other: Low Platelets NIRAJ CISNEROS Nov 24, 2017 09:57
[2017-11-24] MEDS: LACTULOSE SYRUP 10GM/15ML (ENULOSE) 30ML UDC PO SCH (10:30)
[2017-11-24] MEDS ORDERED: TROUGH ORDER-PHARMACY XX NR ×2 (12:00→17:00)
[2017-11-24] MEDS: APAP 325 MG/10.15 ML LIQ (TYLENOL) UDC PO PRN (12:21)
--- NOTE | 2017-11-24 12:45 | Progress Note-Hospitalist ---
Subjective HPI/CC On Admission Date Seen by Provider: Nov 24, 2017 Time Seen by Provider: 11:45 Pt is an 82yoCF with a PMH of RA on multiple immunsuppressants and a-fib who presented to the ER due to fever and confusion and was admitted for septic shock. Subjective/Events-last exam Patient remains in ICU due to severe sepsis Lactic acid remains elevated DO NOT RESUSCITATE was secured by Dr. Jorgensen in the family Overall patient appears to be stable but receiving maximum and aggressive treatment and she made it clear to me that she did not want to be kept alive with aggressive treatment if that should be all that she has available Platelet count remains low Overall patient is stable and responding to meropenem and vancomycin but still have no source for severe sepsis but empirically treating and responding Review of Systems General: Fatigue, Malaise Pulmonary: Dyspnea Cardiovascular: Palpitations Focused Exam Lactate Level 11/23/17 18:45: Lactic Acid Level 4.84*H 11/24/17 03:30: Lactic Acid Level 3.48*H 11/24/17 09:45: Lactic Acid Level 3.50*H Time of Focused Exam: 12:00 Lactic Acid Level Objective Exam Vital Signs Vital Signs Date Time Temp Pulse Resp B/P (MAP) Pulse Ox O2 Delivery O2 Flow Rate FiO2 11/24/17 17:00 99.8 11/24/17 16:00 93 Nasal Cannula 1.00 11/24/17 15:00 101 26 114/79 (91) 11/23/17 11:51 28 Capillary Refill : Less Than 3 Seconds General Appearance: WD/WN, Chronically ill, Cachetic, Mild Distress HEENT: Normal ENT Inspection, Pharynx Normal Neck: Full Range of Motion, Normal Inspection, Non Tender, Supple Respiratory: Lungs Clear, Normal Breath Sounds, Decreased Breath Sounds Cardiovascular: Regular Rate, Rhythm, No Edema Neurologic/Psychiatric: Alert, Oriented x3, No Motor/Sensory Deficits, Depressed Affect Skin: Normal Color, Warm/Dry Lymphatic: No Adenopathy Results/Procedures Lab Laboratory Tests 11/23/17 19:45 11/24/17 03:30 Patient resulted labs reviewed. Imaging: Reviewed Imaging Films, Reviewed Imaging Report Assessment/Plan Assessment and Plan Assess & Plan/Chief Complaint Assessment: Septic shock on immunosuppressives Plan: IVF to continue Empiric abx with Zosyn and Vanc Appreciate Cardiology and Pulmonology consultations Monitor closely Poor prognosis Critical Care Critical Care: Critically Ill Patient Diagnosis/Problems Diagnosis/Problems (1) Septic shock Status: Acute Assessment & Plan: Lactic acid continues to elevate regardless of IVF (2) Altered mental status Status: Acute Assessment & Plan: 11/23/17: Improved Qualifiers: Altered mental status type: delirium Qualified Codes: R41.0 - Disorientation, unspecified (3) Thrombocytopenia Status: Acute Assessment & Plan: 11/23: Worsened (4) Urinary tract infection Status: Acute Qualifiers: Urinary tract infection type: acute cystitis Hematuria presence: with hematuria Qualified Codes: N30.01 - Acute cystitis with hematuria (5) Atrial fibrillation Status: Chronic Qualifiers: Atrial fibrillation type: paroxysmal Qualified Codes: I48.0 - Paroxysmal atrial fibrillation (6) Transaminitis Status: Acute (7) Elevated INR Status: Acute (8) Rheumatoid arthritis Status: Acute Qualifiers: Rheumatoid arthritis location: multiple sites Rheumatoid factor presence: unspecified presence Qualified Codes: M06.9 - Rheumatoid arthritis, unspecified (9) Histoplasmosis Status: Chronic Assessment & Plan: checking CT chest (10) Immunosuppressed status Status: Chronic (11) End stage management Status: Acute Assessment & Plan: Need DNR since prognosis is very poor and patient not responding to management Clinical Quality Measures DVT/VTE Risk/Contraindication: Risk Factor Score Per Nursin RFS Level Per Nursing on Admit: 4+=Very High Contraindications-Pharm: Other *list below* Contraindications-Mechi: Other *list below* Other: Low Platelets CHAPO RIVERA DO Nov 24, 2017 12:45
--- NOTE | 2017-11-24 12:47 | Occupational Ther Daily Note ---
OT Current Status-Daily Note Subjective Pt alert, lying in bed. Pt was trying to push O2 tubing over head saying "I need to take my daughter's glasses off". MILLER reoriented pt and pt place O2 back on. Mental Status/Objective Functional Orient Measure 0=Not Assessed/NA 4=Minimal Assistance 1=Total Assistance 5=Supervision or Setup 2=Maximal Assistance 6=Modified Orient 3=Moderate Assistance 7=Complete Orient ADL-Treatment Pt attempted to hold styrofoam cup with B hands. Due to pt's arthritis it is difficulty for pt to hold onto and bring cup to mouth. [place] cup provided to pt. HOB raised to keep pt's upper body upright to decrease the distance that the pt has to bring cup to mouth. Pt did demonstrate ability to bring [place] cup to mouth though had slight difficulty with completing. After therapy, pt's family present in room. Call light/phone in reach. All needs met in room. OT Short Term Goals Short Term Goals Time Frame: December 07, 2017 Eating(FIM): 5 Grooming(FIM): 5 Bathing(FIM): 3 Upper Body Dressing(FIM): 4 Lower Body Dressing(FIM): 3 Toileting(FIM): 3 Transfers (B,C,W/C) (FIM): 4 Toilet/Commode Transfer(FIM): 4 Shower Transfer(FIM): 3 Additional Short Term Goals: 1-Demonstrate ADL Tasks, 2-Verbalize Understanding , 3-ImproveStrength/[place] 1=Demonstrate adherence to instructed precautions during ADL tasks. 2=Patient will verbalize/demonstrate understanding of assistive devices/ modifications for ADL. 3=Patient will improve strength/tolerance for activity to enable patient to perform ADL's. OT Halfway Goals Halfway Goals Time Frame: December 21, 2017 Eating (FIM): 6 Grooming(FIM): 6 Bathing(FIM): 4 Upper Body Dressing(FIM): 5 Lower Body Dressing(FIM): 5 Toileting(FIM): 6 Transfers (B,C,W/C) (FIM): 6 Toilet/Commode Transfer(FIM): 6 Shower Transfer(FIM): 4 Additional Goals: 1-Demonstrate ADL Tasks, 2-Verbalize Understanding, 3- ImproveStrength/Clyde 1=Demonstrate adherence to instructed precautions during ADL tasks. 2=Patient will verbalize/demonstrate understanding of assistive devices/ modifications for ADL. 3=Patient will improve strength/tolerance for activity to enable patient to perform ADL's. OT Education/Plan Discharge Recommendations Plan/Recommendations: Continue POC Treatment Plan/Plan of Care Patient would benefit from OT for education, treatment and training to promote independence in ADL's, mobility, safety and/or upper extremity function for ADL' s. Plan of Care: ADL Retraining, Caregiver Training, Functional Mobility, UE Funct Exercise/Act Treatment Duration: December 21, 2017 Frequency: 5 times per week Estimated Hrs Per Day: .25 hour per day Agreement: Yes Rehab Potential: Fair Time/GCodes Start Time: 11:45 Stop Time: 12:00 Total Time Billed (hr/min): 15 Billed Treatment Time 1 visit-FA 1 (15 min) SHAY PAYTON Nov 24, 2017 12:47
--- NOTE | 2017-11-24 14:36 | Physical Therapy Daily Note ---
PT Daily Note-Current Subjective Pt laying Supine in bed upon arrival. Pt is confused and keeps wanting to get up for urination, POINT OF CARE TECHNICIAN reminded pt that Reese is present so it isn't needed. Pt agrees to some Supine Ex. Pain Location: No Pain Reported Mental Status Patient Orientation: Person, Place Attachments: Reese Catheter, IV Transfers Functional [place] Measure 0=Not Assessed/NA 4=Minimal Assistance 1=Total Assistance 5=Supervision or Setup 2=Maximal Assistance 6=Modified [place] 3=Moderate Assistance 7=Complete IndependenceIRFPAI Quality Coding Scale 6 Independent with activity with or without an assistive device 5 Patient requires set up or clean up by helper. Patient completes activity by themselves 4 Supervision or touching assist (CGA). [place] provide cues , steadying assist 3 The helper provides less than half the effort to complete the activity 2 The helper provides more than half the effort to complete the activity 1 Dependent. The helper does all the effort to complete an activity 7 Patient refused to complete or attempt activity 9 The patient did not perform the activity before the current illness or injury 88 Not attempted due to Medical conditions or safety concerns Weight Bearing Right Lower Extremity: Right Full Weight Bearing Left Lower Extremity: Left Full Weight Bearing Exercises Supine Ex: Ankle pumps, Quad Set, Heel Slides Supine Reps: 10 Treatments Pt completes limited Supine Ex with rest breaks after each Ex due to fatigue and nausea. Pt reports need to urinate but POINT OF CARE TECHNICIAN reminds pt of Reese. Pt reports needing to discontinue PT due to nausea. Assessment Current Status: Fair Progress Pt reports nausea throughout tx. POINT OF CARE TECHNICIAN gives a couple of rest breaks but pt reports needing to stop PT due to nausea. PT Short Term Goals Short Term Goals Transfers (B,C,W/C) (FIM): 4 PT Fci Goals Call Center Operations Manager Goals PT Call Center Operations Manager Goals Time Frame: December 17, 2017 Transfers (B,C,W/C) (FIM): 3 Gait (FIM): 1 Gait distance (FIM): 1=up to 49 ft Distance: 15' Gait Level of Assist: 3 Gait Assistive Device: FWW PT Plan Problem List Problem List: Activity Tolerance, Functional Strength, Safety, Balance, Gait, Transfer Treatment/Plan Treatment Plan: Continue Plan of Care Treatment Plan: Bed Mobility, Education, Functional Activity [place], Functional Strength, Gait, Safety, Therapeutic Exercise, Transfers Treatment Duration: December 17, 2017 Frequency: 5 times per week (will increase to 6/wk when medically stable) Estimated Hrs Per Day: .25 hour per day Patient and/or Family Agrees t: Yes Safety Risks/Education Patient Education: Correct Positioning, Disease Process, Safety Issues Teaching Recipient: Patient Teaching Methods: Discussion Response to Teaching: Verbalize Understanding, Reinforcement Needed Time/GCodes Time In: 1135 Time Out: 1150 Total Billed Treatment Time: 15 Total Billed Treatment 1, EX (15m) NIKKI JUNIOR POINT OF CARE TECHNICIAN Nov 24, 2017 14:36
--- NOTE | 2017-11-24 16:44 | Cardiology Progress Note ---
Subjective Date Seen by Provider: Nov 24, 2017 Time Seen by Provider: 15:00 Subjective/Events-last exam A shunt is laying down in bed, feeling better. Denied any chest pain, reporting improvement Review of Systems General: No Chills, No Night Sweats, No Fatigue, No Malaise, No Appetite, No Other HEENT: No Head Aches, No Visual Changes, No Eye Pain, No Ear Pain, No Dysphasia , No Sinus Congestion, No Post Nasal Drip, No Sore Throat, No Other Pulmonary: Dyspnea, Cough; No Pleuritic Chest Pain, No Other Cardiovascular: No: Chest Pain, Palpitations, Orthopnea, Paroxysmal Noc. Dyspnea, Edema, Lt Headedness, Other Focused Exam Lactate Level 11/23/17 18:45: Lactic Acid Level 4.84*H 11/24/17 03:30: Lactic Acid Level 3.48*H 11/24/17 09:45: Lactic Acid Level 3.50*H Time of Focused Exam: 12:00 Objective-Cardiology Exam Last Set of Vital Signs Vital Signs 11/23/17 11/24/17 11/24/17 11:51 14:30 15:00 Temp 98.5 Pulse 101 Resp 26 B/P (MAP) 114/79 (91) Pulse Ox 95 O2 Delivery Nasal Cannula O2 Flow Rate 1.00 FiO2 28 Capillary Refill : Less Than 3 Seconds I&O Intake and Output 11/24/17 00:00 Intake Total 6870 ml Output Total 3250 ml Balance 3620 ml Intake Oral 830 ml IV Total 6040 ml Output Urine Total 3250 ml # Bowel Movements 2 General: Alert, Oriented X3, Cooperative, Moderate Distress HEENT: Atraumatic, PERRLA, EOMI Neck: Supple, No JVD Lungs: Other (Bilateral rhonchi) Heart: Regular Rate, Normal S1, Normal S2, Other (Systolic murmur) Abdomen: Normal Bowel Sounds, Soft, No Tenderness Extremities: No Clubbing, No Cyanosis Skin: No Rashes, No Breakdown Neuro: Normal Speech, Sensation Intact Psych/Mental Status: Mental Status NL, Mood NL Results Lab Laboratory Tests 11/23/17 19:45 11/24/17 03:30 A/P-Cardiology Admission Diagnosis Severe sepsis Proximal atrial fibrillation Hypertension Elevated liver enzymes Assessment/Plan Severe sepsis with septic shock, receiving antibiotic IVF, lactic acid continues to be elevated. Improving slowly, still having persistent elevation in lactic acid, mental status is significantly better. Immunocompromise secondary to medication. Paroxysmal atrial fibrillation. On Xarelto and metoprolol, she is in sinus rhythm at this time, thrombocytopenia, anticoagulation are on hold Elevated liver enzymes, ultrasound is negative. Hypertension, patient has been on Toprol-XL 50 mg daily, I will restart medication once she is more stable History of mild carotid stenosis, ultrasound was done in March 2016 Rheumatoid arthritis. On methotrexate and prednisone. High risk for DVT, unable to tolerate anticoagulation due to thrombocytopenia, refusing SCD Complicated patient with multiple medical issues. Clinical Quality Measures DVT/VTE Risk/Contraindication: Risk Factor Score Per Nursin RFS Level Per Nursing on Admit: 4+=Very High Contraindications-Pharm: Other *list below* Contraindications-Mechi: Other *list below* Other: Low Platelets CHELI OLSEN MD Nov 24, 2017 16:44
[2017-11-24] MEDS: ANIDULAFUNGIN INJECTION 100 MG in NS (IVPB) 100 ML IV SCH (17:14)
[2017-11-24] MEDS: IBUPROFEN SUSP 100MG/5ML (MOTRIN) UDC PO PRN (20:39)
[2017-11-25] VITALS (34 sets, daily range): BP systolic 77–176; BP diastolic 43–99
[2017-11-25] MEDS: MEROPENEM 500 MG in NS (IVPB) 100 ML IV SCH ×3 (00:19→16:56)
[2017-11-25] MEDS: methylPREDNISolone 40 MG/ML (Solu-MEDROL) VIAL IV SCH ×3 (00:19→16:56)
[2017-11-25] MEDS: NS IV 1000 ML 1,000 ML IV SCH ×3 (00:19→13:49)
[2017-11-25] MEDS: RT-ALBUTEROL/IPRATROPIUM 3 ML (DUONEB) VIAL INH SCH ×4 (02:28→18:40)
[2017-11-25] MEDS: AMIODARONE 450 MG/D5W 250 ML (EXCEL) IV SCH ×2 (02:40)
[2017-11-25] MEDS ORDERED: [UNRECOGNIZED DRUG - OTHER] IV ONE ×2 (04:45)
[2017-11-25] MEDS ORDERED: D5W IV ONE ×2 (04:45)
[2017-11-25 05:14] LABS: BASOPHILS % (AUTO) 1 % (0-10); EOSINOPHILS % (AUTO) 2 % (0-10); LYMPHOCYTES # (AUTO) 0.7 X 10^3 (1.0-4.0); LYMPHOCYTES % (AUTO) 29 % (12-44); MEAN CORPUSCULAR HEMOGLOBIN 31 PG (25-34); MEAN CORPUSCULAR HGB CONC 34 G/DL (32-36); MEAN CORPUSCULAR VOLUME 91 FL (80-99); MEAN PLATELET VOLUME 11.3 FL (7.4-10.4); MONOCYTES # (AUTO) 0.2 X 10^3 (0.0-1.0); MONOCYTES % (AUTO) 9 % (0-12); NEUTROPHILS # (AUTO) 1.5 X 10^3 (1.8-7.8); NEUTROPHILS % (AUTO) 60 % (42-75); PLATELET COUNT 112 10^3/uL (130-400); RED BLOOD COUNT 1.93 10^6/uL (4.35-5.85); RED CELL DISTRIBUTION WIDTH 16.4 % (10.0-14.5)
[2017-11-25 05:19] LABS: HEMATOCRIT 18 % (35-52); HEMOGLOBIN 5.9 G/DL (11.5-16.0)
[2017-11-25] MEDS: KCL 20 MEQ TAB (K-DUR) PO SCH (05:23)
[2017-11-25 05:30] LABS: SMEAR SCAN COMMENT YES
[2017-11-25 05:40] LABS: ALANINE AMINOTRANSFERASE 149 U/L (0-55); ALBUMIN 1.7 GM/DL (3.2-4.5); ALKALINE PHOSPHATASE 205 U/L (40-136); BILIRUBIN,TOTAL 1.6 MG/DL (0.1-1.0); BUN/CREATININE RATIO 40; CALCIUM 6.4 MG/DL (8.5-10.1); CARBON DIOXIDE 17 MMOL/L (21-32); CHLORIDE 115 MMOL/L (98-107); CREATININE SERUM 0.57 MG/DL (0.60-1.30); GFR ESTIMATED > 60; GLUCOSE 133 MG/DL (70-105); MAGNESIUM 1.8 MG/DL (1.8-2.4); PHOSPHORUS 1.9 MG/DL (2.3-4.7); POTASSIUM 3.6 MMOL/L (3.6-5.0); SODIUM 140 MMOL/L (135-145); TOTAL PROTEIN 3.5 GM/DL (6.4-8.2)
[2017-11-25] MEDS: VANCOMYCIN 1 GM/NS 250 ML IVPB IV SCH ×4 (06:17→16:56)
[2017-11-25] MEDS: PANTOPRAZOLE 40 MG (PROTONIX) TAB PO SCH (06:17)
[2017-11-25] MEDS: MAGNESIUM 1 GM/100 ML IVPB 100 ML IV SCH (06:37)
[2017-11-25] MEDS: POTASSIUM CL 10MEQ/50ML IVPB 50 ML IV SCH ×3 (06:38→09:30)
--- NOTE | 2017-11-25 06:40 | Pulmonary Progress Note ---
Subjective Time Seen by Provider: 06:39 Subjective/Events-last exam family at bedside. Pt is currently sleeping with some increased WOB. Focused Exam Lactate Level 11/23/17 18:45: Lactic Acid Level 4.84*H 11/24/17 03:30: Lactic Acid Level 3.48*H 11/24/17 09:45: Lactic Acid Level 3.50*H Time of Focused Exam: 12:00 Exam Exam Vital Signs Date Time Temp Pulse Resp B/P (MAP) Pulse Ox O2 Delivery O2 Flow Rate FiO2 11/25/17 05:00 138 29 107/81 (90) 98 Nasal Cannula 1.00 11/25/17 04:00 93 Nasal Cannula 1.00 11/25/17 04:00 144 34 136/96 (109) 96 Nasal Cannula 1.00 11/25/17 03:00 97 26 135/69 (91) 96 Nasal Cannula 1.00 11/25/17 02:29 95 Nasal Cannula 1.00 11/25/17 02:00 95 28 143/77 (99) 95 Nasal Cannula 1.00 11/25/17 01:00 87 21 135/73 (93) 96 Nasal Cannula 1.00 11/25/17 01:00 87 11/25/17 00:00 99.8 11/25/17 00:00 93 Nasal Cannula 1.00 11/25/17 00:00 98 27 146/78 (100) 95 Nasal Cannula 1.00 11/24/17 23:00 96 3 133/70 (91) 95 Nasal Cannula 1.00 11/24/17 22:00 103 32 133/97 (109) 95 Nasal Cannula 1.00 11/24/17 21:00 109 33 146/86 (106) 96 Nasal Cannula 1.00 11/24/17 20:39 100.2 11/24/17 20:34 100.2 11/24/17 20:00 106 31 143/74 (97) 96 Nasal Cannula 1.00 11/24/17 20:00 93 Nasal Cannula 1.00 11/24/17 19:00 103 11/24/17 19:00 103 37 155/108 (124) 95 Nasal Cannula 1.00 11/24/17 18:51 95 Nasal Cannula 1.00 11/24/17 18:21 99.6 156/84 (108) 11/24/17 18:00 115 94 Nasal Cannula 1.00 11/24/17 17:00 96 137/73 (94) 95 Nasal Cannula 1.00 11/24/17 17:00 99.8 11/24/17 16:00 100 32 111/71 (84) 94 Nasal Cannula 1.00 11/24/17 16:00 93 Nasal Cannula 1.00 11/24/17 15:00 101 26 114/79 (91) 95 Nasal Cannula 1.00 11/24/17 14:30 Nasal Cannula 2.00 11/24/17 14:30 98.5 11/24/17 14:00 87 22 118/77 (91) 94 Nasal Cannula 1.00 11/24/17 13:00 89 28 137/69 (91) 96 Nasal Cannula 1.00 11/24/17 13:00 89 11/24/17 12:00 99.7 104 28 128/83 (98) 93 Nasal Cannula 1.00 11/24/17 12:00 93 Nasal Cannula 1.00 11/24/17 11:00 95 34 149/78 (101) 95 Nasal Cannula 1.00 11/24/17 10:00 93 30 126/95 (105) 97 Nasal Cannula 1.00 11/24/17 09:15 Nasal Cannula 1.00 11/24/17 09:00 84 28 145/82 (103) 98 Nasal Cannula 3.00 11/24/17 08:20 97 Nasal Cannula 2.00 11/24/17 08:00 97.6 11/24/17 08:00 96 Nasal Cannula 2.00 11/24/17 08:00 77 19 140/105 (117) 98 Nasal Cannula 3.00 11/24/17 07:00 89 11/24/17 07:00 87 23 99/76 (84) 97 Nasal Cannula 3.00 I & O 11/25/17 07:00 Intake Total 2590 ml Output Total 1160 ml Balance 1430 ml General Appearance: WD/WN, Chronically ill, Cachetic, Mild Distress HEENT: Normal ENT Inspection, Pharynx Normal Neck: Full Range of Motion, Normal Inspection, Non Tender, Supple Respiratory: Lungs Clear, Normal Breath Sounds, Decreased Breath Sounds Cardiovascular: Regular Rate, Rhythm, No Edema Capillary Refill: Less Than 3 Seconds Peripheral Pulses: 2+ Dorsalis Pedis (R), 2+ Left Dors-Pedis (L) Extremity: Normal Capillary Refill, No Calf Tenderness, Other Neurologic/Psychiatric: Alert, Oriented x3, No Motor/Sensory Deficits, Depressed Affect Skin: Normal Color, Warm/Dry Lymphatic: No Adenopathy Results Lab Laboratory Tests 11/23/17 19:45 11/24/17 03:30 11/25/17 05:05 Assessment/Plan Assessment/Plan Severe sepsis - with medication induced immunocompromise -Matias cultures reviewed -Continue vanco, merrem Metabolic lactic acidosis -IVF and monitor UTI Afib - now controlled -Cardiology consulted Electrolyte abnormality -replace Elevated LFTs with metabolic encephalopathy -Accu check -solumedrol 40 IV Q6 -Decrease to Q12 Thrombocytopenia - with DIC and now with severe anemia -transfuse 1 unit and recheck H&H 1hr after transfusion -Check H&H Q6 hrs -Change protonix to 40IV BID -check occult stool -monitor DVT/GI ppx -No Lovenox secondary to platelets -Protonix -Pt refusing SCDs -increase activity Deconditioning -consult PT/OT I discussed with family at bedside pts current condition. Time spent with patient, family, and medical team is 30min. Critical Care: Critically Ill Patient Time spent with patient (mins): 30 LIDYA BACH DO Nov 25, 2017 06:40
[2017-11-25 08:03] LABS: INR 1.8 (0.8-1.4); PROTHROMBIN TIME PATIENT 20.8 SEC (12.2-14.7)
[2017-11-25] MEDS ORDERED: meTOprolol 5 MG/5 ML (LOPRESSOR) VIAL ONE (08:12)
[2017-11-25] MEDS ORDERED: meTOprolol 5 MG/5 ML (LOPRESSOR) VIAL IV ONE (08:15)
[2017-11-25] MEDS: PANTOPRAZOLE 40 MG/10 ML (PROTONIX) VIAL IV SCH ×2 (08:22→21:16)
--- NOTE | 2017-11-25 08:28 | Cardiology Progress Note ---
Subjective Date Seen by Provider: Nov 25, 2017 Time Seen by Provider: 08:26 Subjective/Events-last exam Patient is laying down in bed, lethargic, family around her. Significant deterioration overnight. Currently in atrial fibrillation with rapid ventricular response Review of Systems General: No Chills, No Night Sweats; Fatigue, Malaise; No Appetite, No Other HEENT: No Head Aches, No Visual Changes, No Eye Pain, No Ear Pain, No Dysphasia , No Sinus Congestion, No Post Nasal Drip, No Sore Throat, No Other Pulmonary: Dyspnea Cardiovascular: No: Chest Pain, Palpitations, Orthopnea, Paroxysmal Noc. Dyspnea, Edema, Lt Headedness, Other Focused Exam Lactate Level 11/24/17 03:30: Lactic Acid Level 3.48*H 11/24/17 09:45: Lactic Acid Level 3.50*H 11/25/17 07:35: Lactic Acid Level 3.88*H Time of Focused Exam: 12:00 Lactic Acid Level Laboratory Tests Test 11/25/17 07:35 Lactic Acid Level 3.88 MMOL/L (0.50-2.00) *H Objective-Cardiology Exam Last Set of Vital Signs Vital Signs 11/23/17 11/25/17 11:51 08:15 Temp 97.0 Pulse 129 Resp 37 B/P (MAP) 136/71 Pulse Ox 97 O2 Delivery Nasal Cannula O2 Flow Rate 1.00 FiO2 28 Capillary Refill : Less Than 3 Seconds I&O Intake and Output 11/25/17 00:00 Intake Total 3843 ml Output Total 2425 ml Balance 1418 ml Intake Oral 450 ml IV Total 3393 ml Output Urine Total 2425 ml General: Alert, Oriented X3, Cooperative, Moderate Distress HEENT: Atraumatic, PERRLA, EOMI Neck: Supple, No JVD Lungs: Other (Bilateral rhonchi) Heart: Normal S1, Normal S2, Other (Atrial fibrillation with rapid response) Abdomen: Normal Bowel Sounds, Soft, No Tenderness Extremities: No Clubbing, No Cyanosis, Other (Bruising on the right arm and left arm) Skin: No Rashes, No Breakdown Neuro: Normal Speech, Sensation Intact Psych/Mental Status: Mood NL, Other (Lethargic) Results Lab Laboratory Tests 11/25/17 05:05 A/P-Cardiology Admission Diagnosis Severe sepsis Proximal atrial fibrillation Hypertension Elevated liver enzymes Assessment/Plan Severe sepsis with septic shock, receiving antibiotic IVF, lactic acid continues to be elevated. still having persistent elevation in lactic acid, deterioration today compared to yesterday Anemia, significant drop in H&H, receiving blood transfusion Thrombocytopenia, possible underlying DIC. Immunocompromise secondary to medication. Paroxysmal atrial fibrillation, anticoagulation on hold, started on amiodarone drip, I will give one dose of IV metoprolol and monitor her tolerance and response Elevated liver enzymes, ultrasound is negative. Hypertension, blood pressure is stable at this time, I will monitor her response to IV metoprolol History of mild carotid stenosis, ultrasound was done in March 2016 Rheumatoid arthritis. On methotrexate and prednisone. High risk for DVT, unable to tolerate anticoagulation due to thrombocytopenia, refusing SCD Complicated patient with multiple medical issues. Clinical Quality Measures DVT/VTE Risk/Contraindication: Risk Factor Score Per Nursin RFS Level Per Nursing on Admit: 4+=Very High Contraindications-Pharm: Other *list below* Contraindications-Mechi: Other *list below* Other: Low Platelets CHELI OLSEN MD Nov 25, 2017 08:28
--- NOTE | 2017-11-25 09:07 | Physical Therapy Progress Note ---
Therapy Progress Note Patient is currently medically unstable to receive skilled PT. PT and RN consulted and agrees to place patient on hold on this date and to recheck patient status in JESUS Garcia PT Nov 25, 2017 09:07
[2017-11-25] MEDS ORDERED: NS 250 ML (IVPB) BAG IV ONE (09:15)
[2017-11-25] MEDS ORDERED: IOHEXOL 350 MG/ML 100 ML (OMNIPAQUE 350) VIAL IV ONE (09:15)
--- NOTE | 2017-11-25 09:25 | Diagnostic Imaging Report ---
EXAMINATION: CHEST 1 VIEW, AP/PA ONLY. INDICATION: Dyspnea. COMPARISON: 11/24/2017. FINDINGS: SUPPORT DEVICES: Stable right IJ central venous catheter with the tip possibly in the right upper atrium. CHEST: Unchanged cardiomegaly with central vascular congestion. Increased hazy airspace opacities have developed. Small layering pleural effusions remain greater on the left. IMPRESSION: 1. Stable support devices. 2. Mild worsening of pulmonary edema. Dictated by: Dictated on workstation # [id number]
[2017-11-25 12:43] LABS: HEMOGLOBIN 7.1 G/DL (11.5-16.0)
--- NOTE | 2017-11-25 13:41 | Occ Therapy Progress Note ---
Therapy Progress Note Attempted this morning to see pt. Pt. room full of family. Family member told this OT, that it is "up and down." Checked back on pt. and all notes suggest to hold pt. this date due to medically unstable. Will check back on pt. in a.m. 1341 VI HALE OT Nov 25, 2017 13:41
[2017-11-25] MEDS: APAP 325 MG/10.15 ML LIQ (TYLENOL) UDC PO PRN (14:02)
[2017-11-25] MEDS: ANIDULAFUNGIN INJECTION 100 MG in NS (IVPB) 100 ML IV SCH (16:56)
[2017-11-25] MEDS ORDERED: HYDROcodone/APAP 7.5MG-325 MG/15 ML (LORTAB) UDC PO PRN (17:30)
[2017-11-25] MEDS ORDERED: FUROSEMIDE 40 MG/4 ML INJ (LASIX) ONE (18:41)
[2017-11-25] MEDS ORDERED: FUROSEMIDE 40 MG/4 ML INJ (LASIX) IVP NR (19:00)
[2017-11-25 19:07] LABS: HEMOGLOBIN 7.7 G/DL (11.5-16.0)
[2017-11-25] MEDS ORDERED: LORazepam INJ 2 MG/ML (ATIVAN) VIAL IVP PRN (19:30)
[2017-11-26] MEDS: MEROPENEM 500 MG in NS (IVPB) 100 ML IV SCH (01:55)
[2017-11-26] MEDS: LORazepam INJ 2 MG/ML (ATIVAN) VIAL IVP PRN ×2 (05:53→16:52)
[2017-11-26] MEDS: methylPREDNISolone 40 MG/ML (Solu-MEDROL) VIAL IV SCH (05:54)
[2017-11-26] MEDS: fentaNYL INJECTION 100 MCG/2 ML AMP IVP PRN ×4 (05:54→21:48)
--- NOTE | 2017-11-26 06:03 | Pulmonary Progress Note ---
Subjective Time Seen by Provider: 05:54 Subjective/Events-last exam Family at bedside including . Pt is breathing fast and her HR is sinus tach around 120. Pt does have accessory muscle use and appears very uncomfortable. I explained to family we need to give more comfort meds and agrees. I talked to Jessica (daughter) on phone and even though she would rather not give comfort meds she does not want pt to be in distress. She said do what you think is best. Focused Exam Lactate Level 11/25/17 07:35: Lactic Acid Level 3.88*H 11/25/17 11:40: Lactic Acid Level 2.88*H 11/25/17 18:58: Lactic Acid Level 2.52*H Time of Focused Exam: 12:00 Exam Exam Vital Signs Date Time Temp Pulse Resp B/P (MAP) Pulse Ox O2 Delivery O2 Flow Rate FiO2 11/26/17 05:00 117 27 96 Nasal Cannula 3.00 11/26/17 04:00 Nasal Cannula 3.00 11/26/17 04:00 117 24 96 Nasal Cannula 3.00 11/26/17 03:00 109 29 98 Nasal Cannula 3.00 11/26/17 02:00 105 24 97 Nasal Cannula 3.00 11/26/17 01:00 99 11/26/17 01:00 98 23 96 Nasal Cannula 3.00 11/26/17 00:00 94 24 96 Nasal Cannula 3.00 11/26/17 00:00 Nasal Cannula 3.00 11/25/17 23:00 95 22 97/88 (91) 97 Nasal Cannula 3.00 11/25/17 22:00 93 32 87/70 (76) 99 Nasal Cannula 3.00 11/25/17 21:00 95 30 94/65 (75) 97 Nasal Cannula 3.00 11/25/17 20:00 105 23 96/70 (79) 91 Nasal Cannula 3.00 11/25/17 20:00 Nasal Cannula 3.00 11/25/17 20:00 97.3 11/25/17 19:00 108 11/25/17 19:00 108 28 77/65 (69) 90 Nasal Cannula 3.00 11/25/17 18:40 90 Nasal Cannula 3.00 11/25/17 18:15 Nasal Cannula 3.00 11/25/17 18:00 90 32 92/69 (77) 95 Nasal Cannula 1.00 11/25/17 17:45 98.9 101 32 121/62 Nasal Cannula 1.00 11/25/17 17:00 92 36 100/68 (79) 93 Nasal Cannula 1.00 11/25/17 17:00 98.7 Nasal Cannula 1.00 11/25/17 16:00 96 34 94/60 (71) 93 Nasal Cannula 1.00 11/25/17 16:00 Nasal Cannula 1.00 11/25/17 16:00 99.0 Nasal Cannula 1.00 11/25/17 15:00 91 45 100/78 (85) 99 Nasal Cannula 1.00 11/25/17 14:59 Nasal Cannula 1.00 11/25/17 14:59 97.7 107 35 111/61 95 Nasal Cannula 1.00 11/25/17 14:46 98.5 92 37 114/43 95 Nasal Cannula 1.00 11/25/17 14:30 98.0 94 42 176/90 97 Nasal Cannula 10.00 11/25/17 14:00 129 33 114/43 (66) 94 Nasal Cannula 1.00 11/25/17 13:00 123 16 115/97 (103) 98 Nasal Cannula 1.00 11/25/17 13:00 124 11/25/17 12:35 99.0 129 40 95/47 95 Nasal Cannula 1.00 11/25/17 12:20 98.5 129 37 101/61 Nasal Cannula 1.00 11/25/17 12:00 114 34 94/74 (81) 94 Nasal Cannula 1.00 11/25/17 12:00 98.5 Nasal Cannula 1.00 11/25/17 12:00 Nasal Cannula 1.00 11/25/17 11:00 129 31 102/86 (91) 97 Nasal Cannula 1.00 11/25/17 10:50 99.0 116 31 109/83 98 Nasal Cannula 1.00 11/25/17 10:30 120 44 109/83 98 Nasal Cannula 1.00 11/25/17 10:00 113 34 109/83 (92) 95 Nasal Cannula 1.00 11/25/17 09:00 105 48 132/99 (110) 97 Nasal Cannula 1.00 11/25/17 08:50 Nasal Cannula 1.00 11/25/17 08:15 97.0 129 37 136/71 97 Nasal Cannula 1.00 11/25/17 08:10 97.0 142 42 136/71 97 Nasal Cannula 1.00 11/25/17 08:00 97.3 Nasal Cannula 1.00 11/25/17 08:00 133 43 136/71 (92) 96 Nasal Cannula 1.00 11/25/17 07:00 135 38 126/91 (103) 96 Nasal Cannula 1.00 11/25/17 07:00 121 11/25/17 06:00 140 30 118/77 (91) 98 Nasal Cannula 1.00 I & O 11/26/17 07:00 Intake Total 520 ml Output Total 2300 ml Balance -1780 ml General Appearance: WD/WN, Chronically ill, Cachetic, Moderate Distress HEENT: Normal ENT Inspection, Pharynx Normal Neck: Full Range of Motion, Normal Inspection, Non Tender, Supple Respiratory: Decreased Breath Sounds, Respiratory Distress Cardiovascular: Regular Rate, Rhythm, No Edema Capillary Refill: Less Than 3 Seconds Peripheral Pulses: 2+ Dorsalis Pedis (R), 2+ Left Dors-Pedis (L) Extremity: Normal Capillary Refill, No Calf Tenderness, Other Neurologic/Psychiatric: Alert, Oriented x3, No Motor/Sensory Deficits, Depressed Affect Skin: Normal Color, Warm/Dry Lymphatic: No Adenopathy Results Lab Laboratory Tests 11/25/17 05:05 11/25/17 12:35 11/25/17 18:58 Assessment/Plan Assessment/Plan Severe sepsis - with medication induced immunocompromise -Matias cultures reviewed -D/C Abx Metabolic lactic acidosis -IVF and monitor UTI Afib - now controlled -Cardiology consulted Electrolyte abnormality -replace Elevated LFTs with metabolic encephalopathy -Accu check Thrombocytopenia - with DIC and now with severe anemia DVT/GI ppx Deconditioning Pt is very weak and deconditioned and on top of sepsis has developed DIC with active bleeding. She was transfused yesterday with PRBC, and FFP. She is chronically medically immunocompromised secondary to severe RA. Pt's prognosis very poor and further medical care is futile. Currently patient is very uncomfortable breathing fast and tachycardic. I have had indepth discussions with family over the past several days explaining her medical condition in depth. Family at bedside they understand patient is actively dieing. asked why RN was giving protonix last night. 60 min spent with family and medical team explaining patients condition and options for end of life care. PT is now comfort care only. Critical Care: Critically Ill Patient Advance Care discuss with: family member (s) End of Life Care: Comfort Measures, Pallative Care, Hospice (Hospital) Advance Care Discussion: initiate discussion, clarifying prognosis, identified end-of-life goals, developed treatment plan Time spent on discussion(mins): 60 LIDYA BACH DO Nov 26, 2017 06:03
[2017-11-26] MEDS ORDERED: GLYCOPYRROLATE 0.2 MG/ML (ROBINUL) 2 ML VIAL IV PRN (06:15)
[2017-11-26] MEDS ORDERED: ONDANSETRON 4 MG/2 ML (SDV) Z0FRAN IVP PRN (06:15)
[2017-11-26] MEDS ORDERED: ARTIFICIAL TEARS OINT (LACRI-LUBE) 3.5 GM TUBE OU PRN (06:15)
[2017-11-26] MEDS ORDERED: PROMETHAZINE INJ 25 MG/ML (PHENERGAN) AMP IVP PRN (06:15)
[2017-11-26] MEDS ORDERED: BISACODYL 10 MG SUPP (DULCOLAX) PR PRN (06:15)
[2017-11-26] MEDS ORDERED: ARTIFICAL TEARS 0.4 ML UNIT DOSE (REFRESH PLUS) OU PRN (06:15)
[2017-11-26] MEDS ORDERED: SALIVA STIMULANT MOUTH SPRAY (BIOTENE) 1.5 OZ MM PRN (06:15)
[2017-11-26] MEDS ORDERED: RT-ALBUTEROL/IPRATROPIUM 3 ML (DUONEB) VIAL INH PRN (06:15)
--- NOTE | 2017-11-26 08:00 | Physical Therapy Progress Note ---
Therapy Progress Note PT to dismiss patient from services due to decline in status. JESUS YATES PT Nov 26, 2017 08:00
--- NOTE | 2017-11-26 11:57 | Occ Therapy Progress Note ---
Therapy Progress Note Pt has had a decline in medical status and is now on comfort care. Will d/c skilled OT at this time. Discussed with TARA. REINA MURRAY OT Nov 26, 2017 11:57
[2017-11-26] MEDS ORDERED: ACETAMINOPHEN 650 MG SUPP (TYLENOL) ONE (21:26)
[2017-11-26] MEDS ORDERED: ACETAMINOPHEN 650 MG SUPP (TYLENOL) PR PRN (21:30)
[2017-11-27] MEDS: LORazepam INJ 2 MG/ML (ATIVAN) VIAL IVP PRN ×2 (00:28→08:08)
[2017-11-27] MEDS ORDERED: HYDROmorphone 1 MG/ML (DILAUDID) 1 ML SYRINGE IV PRN (07:30)
--- NOTE | 2017-11-27 07:36 | Pulmonary Progress Note ---
Subjective Time Seen by Provider: 07:35 Subjective/Events-last exam Family at bedside. Pt is breathing fast with large volumes. She appears uncomfortable. Focused Exam Lactate Level 11/25/17 07:35: Lactic Acid Level 3.88*H 11/25/17 11:40: Lactic Acid Level 2.88*H 11/25/17 18:58: Lactic Acid Level 2.52*H Time of Focused Exam: 12:00 Exam Exam Vital Signs Date Time Temp Pulse Resp B/P (MAP) Pulse Ox O2 Delivery O2 Flow Rate FiO2 11/27/17 07:02 90 Nasal Cannula 3.00 11/26/17 21:58 Nasal Cannula 3.00 11/26/17 08:00 Nasal Cannula 3.00 I & O 11/27/17 07:00 Intake Total 0 ml Output Total 675 ml Balance -675 ml General Appearance: WD/WN, Chronically ill, Cachetic, Moderate Distress HEENT: Normal ENT Inspection, Pharynx Normal Neck: Full Range of Motion, Normal Inspection, Non Tender, Supple Respiratory: Accessory Muscle Use, Decreased Breath Sounds, Respiratory Distress Cardiovascular: Regular Rate, Rhythm, No Edema Capillary Refill: Less Than 3 Seconds Peripheral Pulses: 2+ Dorsalis Pedis (R), 2+ Left Dors-Pedis (L) Extremity: Normal Capillary Refill, No Calf Tenderness, Other Neurologic/Psychiatric: Alert, Oriented x3, No Motor/Sensory Deficits, Depressed Affect Skin: Normal Color, Warm/Dry Lymphatic: No Adenopathy Results Lab Laboratory Tests 11/25/17 12:35 11/25/17 18:58 Assessment/Plan Assessment/Plan Severe sepsis - with medication induced immunocompromise Metabolic lactic acidosis -IVF and monitor UTI Afib - now controlled -Cardiology consulted Electrolyte abnormality -replace Elevated LFTs with metabolic encephalopathy -Accu check Thrombocytopenia - with DIC and now with severe anemia DVT/GI ppx Deconditioning PT is comfort care only. She does not currently appear comfortable. Her RR is around 30 and she is breathing is very aggressive. Family is now ok with Dilaudid. 30min spent with family discussing pt's current condition. Critical Care: Critically Ill Patient Advance Care discuss with: family member (s) End of Life Care: Comfort Measures, Pallative Care, Hospice (Hospital) Advance Care Discussion: clarifying prognosis, identified end-of-life goals, developed treatment plan Time spent on discussion(mins): 30 MIKALA,LIDYA M DO Nov 27, 2017 07:36
[2017-11-27] MEDS: fentaNYL INJECTION 100 MCG/2 ML AMP IVP PRN (08:08)
[2017-11-27] MEDS ORDERED: ONDANSETRON 4 MG/2 ML (SDV) Z0FRAN IV PRN (08:30)
[2017-11-27] MEDS ORDERED: NALOXONE 0.4 MG/ML 1 ML (NARCAN) VIAL IV PRN (08:30)
[2017-11-27] MEDS ORDERED: METOCLOPRAMIDE INJ 10 MG/2 ML (REGLAN) IV PRN (08:30)
[2017-11-27] MEDS ORDERED: NS IV 500 ML PCA CARRIER FLUID IV SCH (08:30)
[2017-11-27] MEDS ORDERED: diphenhydrAMINE 50 MG/ML INJ (BENADRYL) IV PRN (08:30)
[2017-11-27] MEDS ORDERED: FENTANYL PCA IV SCH ×2 (09:00)
[2017-11-27] MEDS ORDERED: SENNA W/DOCUSATE (SENOKOT S) TABLET PO SCH (09:00)
[2017-11-27] MEDS ORDERED: NS IV SCH ×2 (09:00)
--- NOTE | 2017-11-27 10:35 | Progress Note-Hospitalist ---
Subjective HPI/CC On Admission Date Seen by Provider: Nov 27, 2017 Time Seen by Provider: 10:00 Pt is an 82yoCF with a PMH of RA on multiple immunsuppressants and a-fib who presented to the ER due to fever and confusion and was admitted for septic shock. Subjective/Events-last exam Patient has decreasing pulse and respirations consistent with actively dying. She is surrounded by family and clergy. Nursing staff notes that she is more comfortable than she had been earlier when she was seen by Dr. Jorgensen. No exam done at this time secondary to family being present and not wanting to disrupt their time with her left Focused Exam Lactate Level 11/25/17 07:35: Lactic Acid Level 3.88*H 11/25/17 11:40: Lactic Acid Level 2.88*H 11/25/17 18:58: Lactic Acid Level 2.52*H Time of Focused Exam: 12:00 Objective Exam Vital Signs Vital Signs Date Time Temp Pulse Resp B/P (MAP) Pulse Ox O2 Delivery O2 Flow Rate FiO2 11/27/17 07:02 90 Nasal Cannula 3.00 11/26/17 06:00 121 29 11/25/17 20:00 97.3 11/23/17 11:51 28 Capillary Refill : Less Than 3 Seconds General Appearance: Chronically ill Results/Procedures Lab Patient resulted labs reviewed. Imaging: Reviewed Imaging Films, Reviewed Imaging Report Assessment/Plan Assessment and Plan Assess & Plan/Chief Complaint Sepsis / end-of-life comfort care- Critical Care Critical Care: Critically Ill Patient Clinical Quality Measures DVT/VTE Risk/Contraindication: Risk Factor Score Per Nursin RFS Level Per Nursing on Admit: 4+=Very High Contraindications-Pharm: Other *list below* Contraindications-Mechi: Other *list below* Other: Low Platelets JOSE DANIEL ZAMUDIO MD Nov 27, 2017 10:35 am
--- NOTE | 2017-12-06 16:48 | Discharge Summary-Hospitalist ---
Diagnosis/Chief Complaint Date of Admission Nov 20, 2017 at 10:18 Date of Discharge Nov 27, 2017 at 12:45 Admission Diagnosis Septic Shock Discharge Diagnosis Assessment: Septic shock on immunosuppressives Plan: IVF to continue Empiric abx with Zosyn and Vanc Appreciate Cardiology and Pulmonology consultations Monitor closely Poor prognosis (1) Septic shock Status: Acute Assessment & Plan: Lactic acid continues to elevate regardless of IVF (2) Altered mental status Status: Acute Assessment & Plan: 11/23/17: Improved (3) Thrombocytopenia Status: Acute Assessment & Plan: 11/23: Worsened (4) Urinary tract infection Status: Acute (5) Atrial fibrillation Status: Chronic (6) Transaminitis Status: Acute (7) Elevated INR Status: Acute (8) Rheumatoid arthritis Status: Acute (9) Histoplasmosis Status: Chronic Assessment & Plan: checking CT chest (10) Immunosuppressed status Status: Chronic (11) End stage management Status: Acute Assessment & Plan: Need DNR since prognosis is very poor and patient not responding to management Discharge Summary Discharge Physical Exam Allergies: Coded Allergies: banana (Verified Allergy, Severe, ANAPHYLAXIS, 11/23/17) morphine (Verified Adverse Reaction, Intermediate, 11/21/17) CAUSES SEVERE CONFUSION General Appearance: Other (Patient ) Hospital Course Hospital course: Patient had a very complex and lengthy hospital course which occurred in the ICU the entire time she was hospitalized. She presented with atrial fibrillation with rapid ventricular response so she was admitted to the ICU placed on Cardizem drip and cardiology was consulted. Considering her advanced age of [age] years old and on multiple immunosuppressants she began having hypotension and findings consistent with septic shock. Empiric antibiotics were given urinalysis evaluated to be possible source and patient was given IV fluids accordingly. 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 She was made DO NOT RESUSCITATE that continued aggressive treatment in the meantime. Patient was given blood transfusions and attempted to do multiple other aggressive treatment but she continued to decline patient was considered end-stage and placed on comfort care. Patient was provided pain medication and oxygen and she peacefully with her family at the bedside of multisystem organ failure. Labs (last 24 hrs) Microbiology 11/23/17 Blood Culture - Final, Complete No growth 4/25/18 Gram Stain - Final, Complete 11/24/17 Sputum Culture - Final, Complete Normal fan Presumptive Twila Albicans 11/20/17 Urine Culture - Final, Complete NO GROWTH Patient resulted labs reviewed. Imaging: Reviewed Imaging Films, Reviewed Imaging Report Discussion & Recommendations Discharge Planning: <30 minutes discharge planning Discharge Home Medications: Active Scripts Active Reported Folic Acid 0.8 Mg Capsule 0.8 Mg PO DAILY Refresh Tears (Carboxymethylcellulose Sodium) 15 Ml Drops 1 Drop OU PRN PRN Multivitamins (Multivitamin) 1 Each Tablet 1 Tab PO DAILY Acetaminophen 500 Mg Tablet 500-1,000 Mg PO Q6H PRN TAKES 1-2 OF A (500 MG) TABLET / TAKES NO MORE THAN 4 TABLETS PER DAY DIRECTED BY DR. NORRIS Metoprolol Succinate 50 Mg Tab.er.24h 50 Mg PO DAILY Methotrexate (Methotrexate Sodium) 25 Mg/1 Ml Vial 15 Mg SC SAL[place]O PATIENT RECEIVES 0.6 ML OF A (50MG/2ML) INJECTION Prednisone 10 Mg Tab 10 Mg PO DAILY Xarelto (Rivaroxaban) 20 Mg Tablet 20 Mg PO DAILY Latanoprost 2.5 Ml Drops 1 Drop OU HS Instructions to patient/family Please see electronic discharge instructions given to patient. Clinical Quality Measures DVT/VTE Risk/Contraindication: Risk Factor Score Per Nursin RFS Level Per Nursing on Admit: 4+=Very High Contraindications-Pharm: Other *list below* Contraindications-Mechi: Other *list below* Other: Low Platelets Problem Qualifiers (1) Altered mental status: Altered mental status type: delirium Qualified Codes: R41.0 - Disorientation , unspecified (2) Urinary tract infection: Urinary tract infection type: acute cystitis Hematuria presence: with hematuria Qualified Codes: N30.01 - Acute cystitis with hematuria (3) Atrial fibrillation: Atrial fibrillation type: paroxysmal Qualified Codes: I48.0 - Paroxysmal atrial fibrillation (4) Rheumatoid arthritis: Rheumatoid arthritis location: multiple sites Rheumatoid factor presence: unspecified presence Qualified Codes: M06.9 - Rheumatoid arthritis, unspecified CHAPO RIVERA DO December 06, 2017 16:48
== END 2017-11-27 12:45 | disposition expired | DRG 871 ==
LOC: EDUNIT# 08:16 → ER 08:17 → ICU 10:18
PROVIDERS: ADMIT Family Medicine; ATTEND Family Medicine
PROC: 02HV33Z Insertion of Infusion Device into Superior Vena Cava, Percutaneous Approach (ICD-10-PCS; principal; 2017-11-20)
DX: A41.9 Sepsis, unspecified organism (principal); R65.21 Severe sepsis with septic shock; N30.01 Acute cystitis with hematuria; D65 Disseminated intravascular coagulation [defibrination syndrome]; D64.9 Anemia, unspecified; I10 Essential (primary) hypertension; I48.0 Paroxysmal atrial fibrillation; Z66 Do not resuscitate; Z51.5 Encounter for palliative care; R74.0 Nonspecific elevation of levels of transaminase and lactic acid dehydrogenase [LDH]; R79.1 Abnormal coagulation profile; T45.515A Adverse effect of anticoagulants, initial encounter; M06.9 Rheumatoid arthritis, unspecified; R32 Unspecified urinary incontinence; R41.0 Disorientation, unspecified; B39.9 Histoplasmosis, unspecified; R53.81 Other malaise; Z79.52 Long term (current) use of systemic steroids; Z87.11 Personal history of peptic ulcer disease; Z86.19 Personal history of other infectious and parasitic diseases; Z79.899 Other long term (current) drug therapy; T45.1X5A Adverse effect of antineoplastic and immunosuppressive drugs, initial encounter; T38.0X5A Adverse effect of glucocorticoids and synthetic analogues, initial encounter
CPT/HCPCS: 36415; 51702; 70470; 71045; 71260; 76700; 80053; 80202; 81000; 82140; 82274; 82330; 82805; 82962; 83605; 83735; 84100; 84443; 84484; 85007; 85014; 85018; 85025; 85027; 85045; 85379; 85384; 85610; 85730; 86022; 86850; 86900; 86901; 86920; 87040; 87070; 87081; 87088; 87205; 87804; 93005; 93306; 94640; 96361; 96365; 96375